=== PATIENT | male | born 1945 | race Two or more races ===

== ENCOUNTER 2019-10-20 19:20 | Inpatient (IN) | payer MEDICARE, OTHER ==
[~2019-10-20] VITALS: Ht 170.2 cm; Wt 85.8 kg
--- NOTE | 2019-10-20 19:50 | NUR ---
ED Nurse Note: . pt presents to ED via [facility] for concerns of sepsis. per EMS, nursing staff at the facility were concerned about sepsis for an unknown reason. pt is only citizen of [place] speaking and denies any pain, when asked how he is doing he says "good." pt is AOx4, answers questions and follows commands. oral temp is 100.8
[2019-10-20 19:53] VITALS: BP 137/59
[2019-10-20] MEDS ORDERED: TYLENOL EXTRA500 MG ORAL (19:55)
[2019-10-20] MEDS ORDERED: PROSCAR5 MG ORAL (19:55)
[2019-10-20] MEDS ORDERED: ARTIFICIAL TEAR15 ML BOTH EYES (19:55)
[2019-10-20] MEDS ORDERED: CARDIZEM60 MG ORAL (19:55)
[2019-10-20] MEDS ORDERED: FLOMAX0.4 MG ORAL (19:55)
[2019-10-20] MEDS ORDERED: ASPIR 8181 MG ORAL (19:55)
[2019-10-20] MEDS ORDERED: ATORVASTATIN CA20 MG ORAL (19:55)
[2019-10-20] MEDS ORDERED: VITAMIN A AND113 GM TP (19:55)
[2019-10-20] MEDS ORDERED: METFORMIN HCL500 M1 ORAL (19:55)
[2019-10-20] MEDS ORDERED: DOCUSATE SODIU100 MG ORAL (19:55)
[2019-10-20] MEDS ORDERED: SERTRALINE HCL50 MG ORAL (19:55)
[2019-10-20 19:58] LABS: HEMATOCRIT 36.6 % (42.0-52.0); HEMOGLOBIN 11.8 G/DL (14.2-18.0); MEAN CORPUSCULAR VOLUME 96 FL (80-99); PLATELET COUNT 283 K/UL (150-450); RED BLOOD COUNT 3.81 M/UL (4.70-6.10); RED CELL DISTRIBUTION WIDTH 13.3 % (11.6-14.8); WHITE BLOOD COUNT 13.5 K/UL (4.8-10.8)
--- NOTE | 2019-10-20 20:10 | NUR ---
ED Nurse Note: pt arrived with cloud catheter from [facility]. tubing is intact and patent. URine sample collected from cloud
[2019-10-20 20:37] LABS: BASOPHILS % (AUTO) 0.5 % (0.0-2.0); EOSINOPHILS % (AUTO) 0.6 % (0.0-3.0); MONOCYTES % (AUTO) 3.5 % (1.0-10.0); NEUTROPHILS % (AUTO) 88.4 % (45.0-75.0)
--- NOTE | 2019-10-20 20:37 | NUR ---
ED Nurse Note: received verbal order from ERMD to hang 1 L NS wide open
[2019-10-20 20:51] LABS: APPEARANCE,URINE SLIGHTLY CLOUDY; BILIRUBIN, URINE NEGATIVE (NEGATIVE); COLOR,URINE PALE YELLOW; GLUCOSE, URINE (UA) NEGATIVE (NEGATIVE); KETONES,URINE NEGATIVE (NEGATIVE); LEUKOCYTE ESTERASE ,URINE 3+ (NEGATIVE); NITRITE,URINE NEGATIVE (NEGATIVE); PH,URINE 5 (4.5-8.0); PROTEIN,URINE 2+ (NEGATIVE); UROBILINOGEN,URINE NORMAL MG/DL (0.0-1.0)
[2019-10-20 21:00] LABS: ANION GAP 8 mmol/L (5-15); BLOOD UREA NITROGEN 17 mg/dL (7-18); CALCIUM 9.3 MG/DL (8.5-10.1); CARBON DIOXIDE 29 MMOL/L (21-32); CHLORIDE 100 MMOL/L (98-107); CREATININE 1.4 MG/DL (0.55-1.30); POTASSIUM 4.1 MMOL/L (3.5-5.1); SODIUM 137 MMOL/L (136-145)
--- NOTE | 2019-10-20 21:09 | Emergency Room Report ---
History of Present Illness General Chief Complaint: General Complaint Source: Medical Record, EMS Present Illness HPI Disclaimer: Please note that this report is being documented using TVTYON technology. This can lead to erroneous entry secondary to incorrect interpretation by the dictating instrument. HPI: 74-year-old male with a history of hypertension, hyperlipidemia, diabetes presents for evaluation of possible infection. According to EMS, he was sent from his nursing facility over concerned over shaking chills he was experiencing earlier today. They do not provide any further information. The patient does not know why he was transferred. He states that he felt nauseous and had one episode of emesis yesterday but is eating and drinking at his baseline today. He had some loose stools earlier today but these also states that these have cleared up. He denies dysuria hematuria or back pain. He denies any subjective fevers, sweats but does report chills. He denies chest pain, palpitations shortness of breath or cough. PMH: Hypertension, hyperlipidemia, diabetes PSH: Back surgery unspecified Allergies: Denies Social Hx: Denies Allergies: Coded Allergies: No Known Allergies (Unverified , 10/20/19) Nursing Documentation-PMH Hx Cardiac Problems: Yes - A-fib Hx Hypertension: Yes Hx Diabetes: Yes - kidney failure Hx Cancer: Yes - BPH,UROGENITAL IMPLANT Hx Gastrointestinal Problems: Yes - Cholelithiasis Hx Neurological Problems: Yes - ENCEPHALOPATHY,SEPSIS,Depression Review of Systems All Other Systems: negative except mentioned in HPI Physical Exam Vital Signs Date Time Temp Pulse Resp B/P (MAP) Pulse Ox O2 Delivery O2 Flow Rate FiO2 10/20/19 19:17 99.0 120 20 180/80 (113) 99 Room Air General: Awake and alert, no acute distress HEENT: NC/AT. EOMI. Cardiovascular: Tachycardic, rate 110. S1 and S2 normal. No murmur appreciated Resp: Normal work of breathing. No cough, wheezing or crackles appreciated Abdomen: Abdomen is soft, nondistended. Nontender Skin: Intact. No abrasions, laceration or rash over the exposed skin MSK: Normal tone and bulk. Moving all extremities. No obvious deformity. Neuro: Awake and alert. Mentating appropriately. Back/Spine: No CVA/flank tenderness Medical Decision Making Diagnostic Impression: Primary Impression: UTI (urinary tract infection) ER Course This a 74-year-old male presenting for evaluation of possible infection as he had one episode of emesis yesterday, loose stools today and had shaking chills according to EMS. There is no accompanying paperwork to explain his transfer. He arrives slightly tachycardic though afebrile. He has no complaints and his physical exam is reassuring. We will start a broad metabolic infectious work- up. Will give gentle IV hydration given his tachycardia. May be dehydration secondary to volume losses from emesis yesterday and loose stools today. He states his symptoms are resolved now. Laboratory Tests Test 10/20/19 19:40 10/20/19 20:10 10/20/19 21:33 White Blood Count 13.5 K/UL (4.8-10.8) H Red Blood Count 3.81 M/UL (4.70-6.10) L Hemoglobin 11.8 G/DL (14.2-18.0) L Hematocrit 36.6 % (42.0-52.0) L Mean Corpuscular Volume 96 FL (80-99) Mean Corpuscular Hemoglobin 31.0 PG (27.0-31.0) Mean Corpuscular Hemoglobin Concent 32.3 G/DL (32.0-36.0) Red Cell Distribution Width 13.3 % (11.6-14.8) Platelet Count 283 K/UL (150-450) Mean Platelet Volume 7.0 FL (6.5-10.1) Neutrophils (%) (Auto) 88.4 % (45.0-75.0) H Lymphocytes (%) (Auto) 7.0 % (20.0-45.0) L Monocytes (%) (Auto) 3.5 % (1.0-10.0) Eosinophils (%) (Auto) 0.6 % (0.0-3.0) Basophils (%) (Auto) 0.5 % (0.0-2.0) Sodium Level 137 MMOL/L (136-145) Potassium Level 4.1 MMOL/L (3.5-5.1) Chloride Level 100 MMOL/L (98-107) Carbon Dioxide Level 29 MMOL/L (21-32) Anion Gap 8 mmol/L (5-15) Blood Urea Nitrogen 17 mg/dL (7-18) Creatinine 1.4 MG/DL (0.55-1.30) H Estimate Glomerular Filtration Rate mL/min (>60) Glucose Level 205 MG/DL (74-106) H Lactic Acid Level 2.50 mmol/L (0.4-2.0) H 1.10 mmol/L (0.66-2.22) Calcium Level 9.3 MG/DL (8.5-10.1) Total Bilirubin 0.8 MG/DL (0.2-1.0) Aspartate Amino Transferase (AST) 46 U/L (15-37) H Alanine Aminotransferase (ALT) 83 U/L (12-78) H Alkaline Phosphatase 191 U/L (46-116) H Total Creatine Kinase 168 U/L (26-308) Creatine Kinase MB 5.0 NG/ML (0.0-3.6) H Creatine Kinase MB Relative Index 2.9 Troponin I 0.000 ng/mL (0.000-0.056) Total Protein 7.7 G/DL (6.4-8.2) Albumin 2.8 G/DL (3.4-5.0) L Globulin 4.9 g/dL Albumin/Globulin Ratio 0.6 (1.0-2.7) L Urine Color Pale yellow Urine Appearance Slightly cloudy Urine pH 5 (4.5-8.0) Urine Specific [place] 1.010 (1.005-1.035) Urine Protein 2+ (NEGATIVE) H Urine Glucose (UA) Negative (NEGATIVE) Urine Ketones Negative (NEGATIVE) Urine Blood 3+ (NEGATIVE) H Urine Nitrite Negative (NEGATIVE) Urine Bilirubin Negative (NEGATIVE) Urine Urobilinogen Normal MG/DL (0.0-1.0) Urine Leukocyte Esterase 3+ (NEGATIVE) H Urine RBC 2-4 /HPF (0 - 0) H Urine WBC 20-30 /HPF (0 - 0) H Urine Squamous Epithelial Cells Occasional /LPF Urine Bacteria Moderate /HPF (NONE) H EKG Diagnostic Results EKG Time: 19:52 Rate: tachycardiac Rhythm: NSR ST Segments: no acute changes Other Impression Sinus tachycardia, borderline left axis, no ST segment changes. Rhythm Strip Diag. Results Rhythm Strip Time: 19:52 EP Interpretation: yes Rate: 110 Rhythm: NSR, no PVC's, no ectopy Chest X-Ray Diagnostic Results Chest X-Ray Diagnostic Results : Chest X-Ray Ordered: Yes # of Views/Limited/Complete: 1 View Indication: Other - infection Interpretation: no consolidation, no effusion, no pneumothorax, other - Hardware in the spine appears intact Impression: No acute disease Electronically Signed by: Electronically signed by Dr. Lucho Collado Reevaluation Time: 21:22 Last Vital Signs Date Time Temp Pulse Resp B/P (MAP) Pulse Ox O2 Delivery O2 Flow Rate FiO2 10/20/19 20:00 118 18 Room Air 10/20/19 19:53 100.8 137/59 96 Status: improved Reevaluation Impression Heart rate improving with IV fluids. Labs show elevation in white count with neutrophil predominance and urinalysis consistent with acute urinary tract infection. He has no clinical signs of pyelonephritis aside from the shaking chills noted earlier today. He is afebrile and otherwise well-appearing without flank tenderness. He is given ceftriaxone. Remainder of labs are largely within normal limits aside from slight elevation of his creatinine of 1.4 but with a normal BUN. Lactate is slightly elevated; repeat is pending. Given his tachycardia, the elevated lactate, his recent vomiting and diarrhea and the creatinine in the setting of an acute urinary tract infection the patient will be admitted for IV fluids and antibiotics. His chills have resolved and currently he is feeling well. Will admit to panel physician. Patient agrees with this treatment plan. Disposition: ADMITTED INPATIENT Condition: Stable Scripts Cephalexin* (KEFLEX*) 500 Mg Capsule 500 MG ORAL EVERY 12 HOURS, #14 CAP 0 Refills Prov: Lucho Collado MD 10/20/19 Referrals: NON PHYSICIAN (PCP) Lucho Collado MD Oct 20, 2019 21:09
[2019-10-20] MEDS ORDERED: cefTRIAXone 1 GM in NS 55 ML IVPB ONE (21:15)
[2019-10-20 21:17] LABS: ALANINE AMINOTRANSFERASE 83 U/L (12-78); ALBUMIN 2.8 G/DL (3.4-5.0); ALBUMIN/GLOBULIN RATIO 0.6 (1.0-2.7); ALKALINE PHOSPHATASE 191 U/L (46-116); ASPARTATE AMINO TRANSFERASE 46 U/L (15-37); BILIRUBIN,TOTAL 0.8 MG/DL (0.2-1.0); CREATINE KINASE 168 U/L (26-308)
[2019-10-20] MEDS ORDERED: CEPHALEXIN500 MG ORAL ×2 (21:25)
--- NOTE | 2019-10-20 22:15 | NUR ---
ED Nurse Note: report given to ITALIA Ray
[2019-10-20] MEDS ORDERED: Morphine Sulfate 2mg/ml Inj(IV/IM USE ONLY) IVP PRN (23:00)
[2019-10-20] MEDS ORDERED: Morphine Sulfate 4mg/ml Inj (IV USE ONLY) IVP PRN (23:00)
--- NOTE | 2019-10-20 23:00 | Pulmonology Progress Note ---
Assessment/Plan Assessment/Plan Pulmonary Consultation HPI: Patient is a 74 year old man from a Group Home, has Past Medical History of Hypertension, Hyperlipidemia, Diabetes admitted with Urinary Tract Infection. Noted to have chills as well as nausea and vomiting. Had one episode of loose stool. Denies dysuria hematuria or back pain. He denies any subjective fevers, sweats. No chest pain, palpitations shortness of breath or cough. PMH: Hypertension, Atrial Fibrillation, Hyperlipidemia, Diabetes, Chronic Kidney Disease, Depression, BPH, Cholelithiasis, Depression PSH: Back surgery unspecified, Urogenital implant Allergies: [place] Allergies Social Hx: Denies Allergies: No Known Allergies All Other Systems: negative except mentioned in HPI Physical Exam Vital Signs Noted Date Time Temp Pulse Resp B/P (MAP) Pulse Ox O2 Delivery O2 Flow Rate FiO2 10/20/19 19:17 99.0 120 20 180/80 (113) 99 Room Air General: Awake and alert, no acute distress HEENT: NC/AT. EOMI. Cardiovascular: Tachycardic, rate 110. HS1 and HS2 normal. No murmur appreciated Resp: Normal work of breathing. No cough, wheezing or crackles appreciated Abdomen: Abdomen is soft, nondistended. Nontender Skin: Intact. No abrasions, laceration or rash over the exposed skin MSK: Normal tone and bulk. Moving all extremities. No obvious deformity. Neuro: Awake and alert. Mentating appropriately. 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 O2 PRN PPX Monitor labs ISS Laboratory Tests Test 10/20/19 19:40 10/20/19 20:10 10/20/19 21:33 White Blood Count 13.5 K/UL (4.8-10.8) H Red Blood Count 3.81 M/UL (4.70-6.10) L Hemoglobin 11.8 G/DL (14.2-18.0) L Hematocrit 36.6 % (42.0-52.0) L Mean Corpuscular Volume 96 FL (80-99) Mean Corpuscular Hemoglobin 31.0 PG (27.0-31.0) Mean Corpuscular Hemoglobin Concent 32.3 G/DL (32.0-36.0) Red Cell Distribution Width 13.3 % (11.6-14.8) Platelet Count 283 K/UL (150-450) Mean Platelet Volume 7.0 FL (6.5-10.1) Neutrophils (%) (Auto) 88.4 % (45.0-75.0) H Lymphocytes (%) (Auto) 7.0 % (20.0-45.0) L Monocytes (%) (Auto) 3.5 % (1.0-10.0) Eosinophils (%) (Auto) 0.6 % (0.0-3.0) Basophils (%) (Auto) 0.5 % (0.0-2.0) Sodium Level 137 MMOL/L (136-145) Potassium Level 4.1 MMOL/L (3.5-5.1) Chloride Level 100 MMOL/L (98-107) Carbon Dioxide Level 29 MMOL/L (21-32) Anion Gap 8 mmol/L (5-15) Blood Urea Nitrogen 17 mg/dL (7-18) Creatinine 1.4 MG/DL (0.55-1.30) H Estimate Glomerular Filtration Rate mL/min (>60) Glucose Level 205 MG/DL (74-106) H Lactic Acid Level 2.50 mmol/L (0.4-2.0) H 1.10 mmol/L (0.66-2.22) Calcium Level 9.3 MG/DL (8.5-10.1) Total Bilirubin 0.8 MG/DL (0.2-1.0) Aspartate Amino Transferase (AST) 46 U/L (15-37) H Alanine Aminotransferase (ALT) 83 U/L (12-78) H Alkaline Phosphatase 191 U/L (46-116) H Total Creatine Kinase 168 U/L (26-308) Creatine Kinase MB 5.0 NG/ML (0.0-3.6) H Creatine Kinase MB Relative Index 2.9 Troponin I 0.000 ng/mL (0.000-0.056) Total Protein 7.7 G/DL (6.4-8.2) Albumin 2.8 G/DL (3.4-5.0) L Globulin 4.9 g/dL Albumin/Globulin Ratio 0.6 (1.0-2.7) L Urine Color Pale yellow Urine Appearance Slightly cloudy Urine pH 5 (4.5-8.0) Urine Specific [place] 1.010 (1.005-1.035) Urine Protein 2+ (NEGATIVE) H Urine Glucose (UA) Negative (NEGATIVE) Urine Ketones Negative (NEGATIVE) Urine Blood 3+ (NEGATIVE) H Urine Nitrite Negative (NEGATIVE) Urine Bilirubin Negative (NEGATIVE) Urine Urobilinogen Normal MG/DL (0.0-1.0) Urine Leukocyte Esterase 3+ (NEGATIVE) H Urine RBC 2-4 /HPF (0 - 0) H Urine WBC 20-30 /HPF (0 - 0) H Urine Squamous Epithelial Cells Occasional /LPF Urine Bacteria Moderate /HPF (NONE) H EKG: Sinus tachycardia, borderline left axis, no ST segment changes. Chest X-Ray: no consolidation, no effusion, no pneumothorax, other - Hardware in the spine appears intact Subjective ROS Limited/Unobtainable: No Allergies: Coded Allergies: No Known Allergies (Unverified , 10/20/19) Objective Last 24 Hour Vital Signs Date Time Temp Pulse Resp B/P (MAP) Pulse Ox O2 Delivery O2 Flow Rate FiO2 10/20/19 20:00 118 18 Room Air 10/20/19 19:53 100.8 118 18 137/59 96 Room Air 10/20/19 19:17 99.0 120 20 180/80 (113) 99 Room Air Microbiology Date/Time Source Procedure Growth Status 10/20/19 22:00 Rectum Received Laboratory Tests 10/20/19 19:40: White Blood Count 13.5H, Red Blood Count 3.81L, Hemoglobin 11.8L, Hematocrit 36.6L, Mean Corpuscular Volume 96, Mean Corpuscular Hemoglobin 31.0, Mean Corpuscular Hemoglobin Concent 32.3, Red Cell Distribution Width 13.3, Platelet Count 283, Mean Platelet Volume 7.0, Neutrophils (%) (Auto) 88.4H, Lymphocytes ( %) (Auto) 7.0L, Monocytes (%) (Auto) 3.5, Eosinophils (%) (Auto) 0.6, Basophils (%) (Auto) 0.5, Sodium Level 137, Potassium Level 4.1, Chloride Level 100, Carbon Dioxide Level 29, Anion Gap 8, Blood Urea Nitrogen 17, Creatinine 1.4H, Estimat Glomerular Filtration Rate , Glucose Level 205H, Lactic Acid Level 2.50H , Calcium Level 9.3, Total Bilirubin 0.8, Aspartate Amino Transf (AST/SGOT) 46H , Alanine Aminotransferase (ALT/SGPT) 83H, Alkaline Phosphatase 191H, Total Creatine Kinase 168, Creatine Kinase MB 5.0H, Creatine Kinase MB Relative Index 2.9, Troponin I 0.000, Total Protein 7.7, Albumin 2.8L, Globulin 4.9, Albumin/ Globulin Ratio 0.6L 10/20/19 20:10: Urine Color Pale yellow, Urine Appearance Slightly cloudy, Urine pH 5, Urine Specific [place] 1.010, Urine Protein 2+H, Urine Glucose (UA) Negative, Urine Ketones Negative, Urine Blood 3+H, Urine Nitrite Negative, Urine Bilirubin Negative, Urine Urobilinogen Normal, Urine Leukocyte Esterase 3+H, Urine RBC 2- 4H, Urine WBC 20-30H, Urine Squamous Epithelial Cells Occasional, Urine Bacteria ModerateH 10/20/19 21:33: Lactic Acid Level 1.10 Mega Rucker MD Oct 20, 2019 23:00
--- NOTE | 2019-10-20 23:05 | NUR ---
NURSE NOTES: Received report from ITALIA Walker ED. Pt arrived the unit @ 2220 via gurney. AAO x 4, on room air. [place] speaking. IV intact and patent. Pt admitted with [facility] from [facility]. All belongings reviewed and meds recon done. Denied any pain or acute distress. Scars on R, L tibia noted and no pressure ulcer. Orientation to the room and facility given. Fall precaution maintained. Vitals 102HR, 125/62BP, 99.3F, 92% O2. Bed locked, lowest position, side rails up, alarm on, call light within reach. Will continue to monitor.
--- NOTE | 2019-10-20 23:30 | NUR ---
NURSE NOTES: Dr. Rucker visited pt and said ok to keep Helms.
--- NOTE | 2019-10-20 23:30 | NUR ---
NURSE NOTES: Received admission orders from Dr. Rucker. Order noted and carried out.
[2019-10-21] VITALS: BP 125/73
[2019-10-21 04:00] VITALS: BP 128/69
[2019-10-21] MEDS: NovoLOG Insulin Flexpen SUBQ SCH ×4 (05:34→20:27)
--- NOTE | 2019-10-21 06:24 | NUR ---
NURSE NOTES: Made aware Dr. Hilario that pt has tachycardia. Received orders and carried out.
--- NOTE | 2019-10-21 07:12 | NUR ---
HAND-OFF: Report given to ITALIA Vazquez.
--- NOTE | 2019-10-21 07:28 | NUR ---
NURSE NOTES: Received pt in bed, AAO x 4. [place] speaking. RA. No c/o of pain/distress. IV on LAC 18g noted. Side rails x 2. Bed in the lowest and locked. Call light within reach. Will continue to monitor
[2019-10-21 08:00] VITALS: BP 130/70
[2019-10-21] MEDS: Sertraline 50mg tab ORAL SCH (08:30)
[2019-10-21] MEDS: Tamsulosin 0.4mg cap ORAL SCH (08:30)
[2019-10-21] MEDS: Aspirin EC 81mg tab ORAL SCH (08:30)
[2019-10-21] MEDS: Docusate 100mg cap ORAL SCH ×2 (08:30→17:01)
[2019-10-21] MEDS: dilTIAZem HCl 60mg tab ORAL SCH ×2 (08:31→20:21)
[2019-10-21] MEDS: Heparin 5000 units/ml inj SUBQ SCH ×2 (08:32→20:26)
--- NOTE | 2019-10-21 08:36 | Pulmonology Progress Note ---
Assessment/Plan Assessment/Plan Pulmonary Progress Note HPI: Patient is a 74 year old man from a [facility], has Past Medical History of Hypertension, Hyperlipidemia, Diabetes admitted with Urinary Tract Infection. Noted to have chills as well as nausea and vomiting. Had one episode of loose stool. Denies dysuria hematuria or back pain. He denies any subjective fevers, sweats. No chest pain, palpitations shortness of breath or cough. No new complaints PMH: Hypertension, Atrial Fibrillation, Hyperlipidemia, Diabetes, Chronic Kidney Disease, Depression, BPH, Cholelithiasis, Depression PSH: Back surgery unspecified, Urogenital implant Allergies: No Known Allergies Physical Exam Vital Signs Noted General: Awake and alert, no acute distress HEENT: NC/AT. EOMI. Cardiovascular: Tachycardic, rate 110. HS1 and HS2 normal. No murmur appreciated Resp: Normal work of breathing. No cough, wheezing or crackles appreciated Abdomen: Abdomen is soft, nondistended. Nontender Skin: Intact. No abrasions, laceration or rash over the exposed skin MSK: Normal tone and bulk. Moving all extremities. No obvious deformity. Neuro: Awake and alert. Mentating appropriately. 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 Monitor labs ISS Laboratory Tests Test 10/20/19 19:40 10/20/19 20:10 10/20/19 21:33 White Blood Count 13.5 K/UL (4.8-10.8) H Red Blood Count 3.81 M/UL (4.70-6.10) L Hemoglobin 11.8 G/DL (14.2-18.0) L Hematocrit 36.6 % (42.0-52.0) L Mean Corpuscular Volume 96 FL (80-99) Mean Corpuscular Hemoglobin 31.0 PG (27.0-31.0) Mean Corpuscular Hemoglobin Concent 32.3 G/DL (32.0-36.0) Red Cell Distribution Width 13.3 % (11.6-14.8) Platelet Count 283 K/UL (150-450) Mean Platelet Volume 7.0 FL (6.5-10.1) Neutrophils (%) (Auto) 88.4 % (45.0-75.0) H Lymphocytes (%) (Auto) 7.0 % (20.0-45.0) L Monocytes (%) (Auto) 3.5 % (1.0-10.0) Eosinophils (%) (Auto) 0.6 % (0.0-3.0) Basophils (%) (Auto) 0.5 % (0.0-2.0) Sodium Level 137 MMOL/L (136-145) Potassium Level 4.1 MMOL/L (3.5-5.1) Chloride Level 100 MMOL/L (98-107) Carbon Dioxide Level 29 MMOL/L (21-32) Anion Gap 8 mmol/L (5-15) Blood Urea Nitrogen 17 mg/dL (7-18) Creatinine 1.4 MG/DL (0.55-1.30) H Estimate Glomerular Filtration Rate mL/min (>60) Glucose Level 205 MG/DL (74-106) H Lactic Acid Level 2.50 mmol/L (0.4-2.0) H 1.10 mmol/L (0.66-2.22) Calcium Level 9.3 MG/DL (8.5-10.1) Total Bilirubin 0.8 MG/DL (0.2-1.0) Aspartate Amino Transferase (AST) 46 U/L (15-37) H Alanine Aminotransferase (ALT) 83 U/L (12-78) H Alkaline Phosphatase 191 U/L (46-116) H Total Creatine Kinase 168 U/L (26-308) Creatine Kinase MB 5.0 NG/ML (0.0-3.6) H Creatine Kinase MB Relative Index 2.9 Troponin I 0.000 ng/mL (0.000-0.056) Total Protein 7.7 G/DL (6.4-8.2) Albumin 2.8 G/DL (3.4-5.0) L Globulin 4.9 g/dL Albumin/Globulin Ratio 0.6 (1.0-2.7) L Urine Color Pale yellow Urine Appearance Slightly cloudy Urine pH 5 (4.5-8.0) Urine Specific [place] 1.010 (1.005-1.035) Urine Protein 2+ (NEGATIVE) H Urine Glucose (UA) Negative (NEGATIVE) Urine Ketones Negative (NEGATIVE) Urine Blood 3+ (NEGATIVE) H Urine Nitrite Negative (NEGATIVE) Urine Bilirubin Negative (NEGATIVE) Urine Urobilinogen Normal MG/DL (0.0-1.0) Urine Leukocyte Esterase 3+ (NEGATIVE) H Urine RBC 2-4 /HPF (0 - 0) H Urine WBC 20-30 /HPF (0 - 0) H Urine Squamous Epithelial Cells Occasional /LPF Urine Bacteria Moderate /HPF (NONE) H EKG: Sinus tachycardia, borderline left axis, no ST segment changes. Chest X-Ray: no consolidation, no effusion, no pneumothorax, other - Hardware in the spine appears intact Seen earlier Subjective ROS Limited/Unobtainable: No Allergies: Coded Allergies: No Known Allergies (Unverified , 10/20/19) Objective Last 24 Hour Vital Signs Date Time Temp Pulse Resp B/P (MAP) Pulse Ox O2 Delivery O2 Flow Rate FiO2 10/21/19 08:31 110 130/70 10/21/19 08:00 97.8 110 17 130/70 (90) 99 10/21/19 04:37 99.2 10/21/19 04:00 100.9 121 20 128/69 (88) 92 10/21/19 00:40 Room Air 10/21/19 00:00 98.4 103 20 125/73 (90) 95 10/20/19 22:15 100.8 99 18 137/59 96 Room Air 10/20/19 20:00 118 18 Room Air 10/20/19 19:53 100.8 118 18 137/59 96 Room Air 10/20/19 19:17 99.0 120 20 180/80 (113) 99 Room Air Intake and Output 10/20/19 10/21/19 19:00 07:00 Intake Total 0 ml Output Total 2100 ml Balance -2100 ml Intake Oral 0 ml Output Urine Total 2100 ml Microbiology Date/Time Source Procedure Growth Status 10/20/19 22:00 Rectum Received Laboratory Tests 10/20/19 19:40: White Blood Count 13.5H, Red Blood Count 3.81L, Hemoglobin 11.8L, Hematocrit 36.6L, Mean Corpuscular Volume 96, Mean Corpuscular Hemoglobin 31.0, Mean Corpuscular Hemoglobin Concent 32.3, Red Cell Distribution Width 13.3, Platelet Count 283, Mean Platelet Volume 7.0, Neutrophils (%) (Auto) 88.4H, Lymphocytes ( %) (Auto) 7.0L, Monocytes (%) (Auto) 3.5, Eosinophils (%) (Auto) 0.6, Basophils (%) (Auto) 0.5, Sodium Level 137, Potassium Level 4.1, Chloride Level 100, Carbon Dioxide Level 29, Anion Gap 8, Blood Urea Nitrogen 17, Creatinine 1.4H, Estimat Glomerular Filtration Rate , Glucose Level 205H, Lactic Acid Level 2.50H , Calcium Level 9.3, Total Bilirubin 0.8, Aspartate Amino Transf (AST/SGOT) 46H , Alanine Aminotransferase (ALT/SGPT) 83H, Alkaline Phosphatase 191H, Total Creatine Kinase 168, Creatine Kinase MB 5.0H, Creatine Kinase MB Relative Index 2.9, Troponin I 0.000, Total Protein 7.7, Albumin 2.8L, Globulin 4.9, Albumin/ Globulin Ratio 0.6L 10/20/19 20:10: Urine Color Pale yellow, Urine Appearance Slightly cloudy, Urine pH 5, Urine Specific [place] 1.010, Urine Protein 2+H, Urine Glucose (UA) Negative, Urine Ketones Negative, Urine Blood 3+H, Urine Nitrite Negative, Urine Bilirubin Negative, Urine Urobilinogen Normal, Urine Leukocyte Esterase 3+H, Urine RBC 2- 4H, Urine WBC 20-30H, Urine Squamous Epithelial Cells Occasional, Urine Bacteria ModerateH 10/20/19 21:33: Lactic Acid Level 1.10 10/21/19 07:40: Troponin I [Pending] Current Medications Medications (Trade) Dose Ordered Sig/Krzysztof Route PRN Reason Start Time Stop Time Status Last Admin Dose Admin Acetaminophen (Tylenol) 650 mg Q6H PRN ORAL Mild Pain/Temp > 100.5 10/20/19 23:45 11/19/19 23:44 10/21/19 04:07 Artificial Tears (Akwa-Tears) 2 drop Q6HR BOTH EYES 10/21/19 12:00 11/20/19 11:59 Aspirin (Ecotrin) 81 mg DAILY ORAL 10/21/19 09:00 11/20/19 08:59 10/21/19 08:30 Atorvastatin Calcium (Lipitor) 20 mg BEDTIME ORAL 10/21/19 21:00 11/20/19 20:59 Ceftriaxone Sodium 1 gm/ Dextrose 55 ml @ 110 mls/hr Q24H IVPB 10/21/19 21:00 10/28/19 20:59 Dextrose (Dextrose 50%) 25 ml Q30M PRN IV Hypoglycemia 10/20/19 23:15 11/19/19 23:14 Dextrose (Dextrose 50%) 50 ml Q30M PRN IV Hypoglycemia 10/20/19 23:15 11/19/19 23:14 Diltiazem HCl (Cardizem) 60 mg EVERY 12 HOURS ORAL 10/21/19 09:00 11/20/19 08:59 10/21/19 08:31 Docusate Sodium (Colace) 100 mg TWICE A DAY ORAL 10/21/19 09:00 11/20/19 08:59 10/21/19 08:30 Finasteride (Proscar) 5 mg DAILY ORAL 10/21/19 09:00 11/20/19 08:59 10/21/19 08:30 Heparin Sodium (Porcine) (Heparin 5000 units/ml) 5,000 units EVERY 12 HOURS SUBQ 10/21/19 09:00 11/20/19 08:59 10/21/19 08:32 Insulin Aspart (NovoLOG) BEFORE MEALS AND HS SUBQ 10/21/19 06:30 11/20/19 06:29 10/21/19 05:34 Metformin HCl (Glucophage) 500 mg TWICE A DAY ORAL 10/21/19 09:00 11/20/19 08:59 10/21/19 08:30 Ondansetron HCl (Zofran) 4 mg Q8HR PRN IVP Nausea & Vomiting 10/21/19 00:00 11/20/19 00:00 Sertraline HCl (Zoloft) 50 mg DAILY ORAL 10/21/19 09:00 11/20/19 08:59 10/21/19 08:30 Tamsulosin HCl (Flomax) 0.4 mg DAILY ORAL 10/21/19 09:00 11/20/19 08:59 10/21/19 08:30 Mega Rucker MD Oct 21, 2019 08:36
[2019-10-21] MEDS ORDERED: metFORMIN 500mg tab ORAL SCH (09:00)
--- NOTE | 2019-10-21 10:18 | History & Physical ---
History and Physical History & Physicial HP Dictation completed on 1010 hours Momo Hilario MD Oct 21, 2019 10:18
--- NOTE | 2019-10-21 10:19 | General Progress Note ---
Assessment/Plan Assessment/Plan: Full Dictatino in progress 1- Sepsis, 2- UTI 3- Abn LFT 4- DM Plan: DC Metformin New abx ordered Pending cultures US abd Subjective Allergies: Coded Allergies: No Known Allergies (Unverified , 10/20/19) Objective Last 24 Hour Vital Signs Date Time Temp Pulse Resp B/P (MAP) Pulse Ox O2 Delivery O2 Flow Rate FiO2 10/21/19 08:31 110 130/70 10/21/19 08:00 97.8 110 17 130/70 (90) 99 10/21/19 04:37 99.2 10/21/19 04:00 100.9 121 20 128/69 (88) 92 10/21/19 00:40 Room Air 10/21/19 00:00 98.4 103 20 125/73 (90) 95 10/20/19 22:15 100.8 99 18 137/59 96 Room Air 10/20/19 20:00 118 18 Room Air 10/20/19 19:53 100.8 118 18 137/59 96 Room Air 10/20/19 19:17 99.0 120 20 180/80 (113) 99 Room Air Intake and Output 10/20/19 10/21/19 19:00 07:00 Intake Total 0 ml Output Total 2100 ml Balance -2100 ml Intake Oral 0 ml Output Urine Total 2100 ml Laboratory Tests 10/20/19 19:40: White Blood Count 13.5H, Red Blood Count 3.81L, Hemoglobin 11.8L, Hematocrit 36.6L, Mean Corpuscular Volume 96, Mean Corpuscular Hemoglobin 31.0, Mean Corpuscular Hemoglobin Concent 32.3, Red Cell Distribution Width 13.3, Platelet Count 283, Mean Platelet Volume 7.0, Neutrophils (%) (Auto) 88.4H, Lymphocytes ( %) (Auto) 7.0L, Monocytes (%) (Auto) 3.5, Eosinophils (%) (Auto) 0.6, Basophils (%) (Auto) 0.5, Sodium Level 137, Potassium Level 4.1, Chloride Level 100, Carbon Dioxide Level 29, Anion Gap 8, Blood Urea Nitrogen 17, Creatinine 1.4H, Estimat Glomerular Filtration Rate , Glucose Level 205H, Lactic Acid Level 2.50H , Calcium Level 9.3, Total Bilirubin 0.8, Aspartate Amino Transf (AST/SGOT) 46H , Alanine Aminotransferase (ALT/SGPT) 83H, Alkaline Phosphatase 191H, Total Creatine Kinase 168, Creatine Kinase MB 5.0H, Creatine Kinase MB Relative Index 2.9, Troponin I 0.000, Total Protein 7.7, Albumin 2.8L, Globulin 4.9, Albumin/ Globulin Ratio 0.6L 10/20/19 20:10: Urine Color Pale yellow, Urine Appearance Slightly cloudy, Urine pH 5, Urine Specific [place] 1.010, Urine Protein 2+H, Urine Glucose (UA) Negative, Urine Ketones Negative, Urine Blood 3+H, Urine Nitrite Negative, Urine Bilirubin Negative, Urine Urobilinogen Normal, Urine Leukocyte Esterase 3+H, Urine RBC 2- 4H, Urine WBC 20-30H, Urine Squamous Epithelial Cells Occasional, Urine Bacteria ModerateH 10/20/19 21:33: Lactic Acid Level 1.10 10/21/19 07:40: Troponin I 0.000 Height (Feet): 5 Height (Inches): 7.00 Weight (Pounds): 150 Momo Hilario MD Oct 21, 2019 10:19
--- NOTE | 2019-10-21 11:41 | Cardiac Electrophysiology PN ---
Subjective Subjective [id number] Objective Last 24 Hour Vital Signs Date Time Temp Pulse Resp B/P (MAP) Pulse Ox O2 Delivery O2 Flow Rate FiO2 10/21/19 09:00 Room Air 10/21/19 08:31 110 130/70 10/21/19 08:00 97.8 110 17 130/70 (90) 99 10/21/19 04:37 99.2 10/21/19 04:00 100.9 121 20 128/69 (88) 92 10/21/19 00:40 Room Air 10/21/19 00:00 98.4 103 20 125/73 (90) 95 10/20/19 22:15 100.8 99 18 137/59 96 Room Air 10/20/19 20:00 118 18 Room Air 10/20/19 19:53 100.8 118 18 137/59 96 Room Air 10/20/19 19:17 99.0 120 20 180/80 (113) 99 Room Air Intake and Output 10/20/19 10/21/19 19:00 07:00 Intake Total 0 ml Output Total 2100 ml Balance -2100 ml Intake Oral 0 ml Output Urine Total 2100 ml Laboratory Tests Test 10/20/19 19:40 10/20/19 20:10 10/20/19 21:33 10/21/19 07:40 White Blood Count 13.5 K/UL (4.8-10.8) H Red Blood Count 3.81 M/UL (4.70-6.10) L Hemoglobin 11.8 G/DL (14.2-18.0) L Hematocrit 36.6 % (42.0-52.0) L Mean Corpuscular Volume 96 FL (80-99) Mean Corpuscular Hemoglobin 31.0 PG (27.0-31.0) Mean Corpuscular Hemoglobin Concent 32.3 G/DL (32.0-36.0) Red Cell Distribution Width 13.3 % (11.6-14.8) Platelet Count 283 K/UL (150-450) Mean Platelet Volume 7.0 FL (6.5-10.1) Neutrophils (%) (Auto) 88.4 % (45.0-75.0) H Lymphocytes (%) (Auto) 7.0 % (20.0-45.0) L Monocytes (%) (Auto) 3.5 % (1.0-10.0) Eosinophils (%) (Auto) 0.6 % (0.0-3.0) Basophils (%) (Auto) 0.5 % (0.0-2.0) Sodium Level 137 MMOL/L (136-145) Potassium Level 4.1 MMOL/L (3.5-5.1) Chloride Level 100 MMOL/L (98-107) Carbon Dioxide Level 29 MMOL/L (21-32) Anion Gap 8 mmol/L (5-15) Blood Urea Nitrogen 17 mg/dL (7-18) Creatinine 1.4 MG/DL (0.55-1.30) H Estimat Glomerular Filtration Rate mL/min (>60) Glucose Level 205 MG/DL (74-106) H Lactic Acid Level 2.50 mmol/L (0.4-2.0) H 1.10 mmol/L (0.66-2.22) Calcium Level 9.3 MG/DL (8.5-10.1) Total Bilirubin 0.8 MG/DL (0.2-1.0) Aspartate Amino Transf (AST/SGOT) 46 U/L (15-37) H Alanine Aminotransferase (ALT/SGPT) 83 U/L (12-78) H Alkaline Phosphatase 191 U/L (46-116) H Total Creatine Kinase 168 U/L (26-308) Creatine Kinase MB 5.0 NG/ML (0.0-3.6) H Creatine Kinase MB Relative Index 2.9 Troponin I 0.000 ng/mL (0.000-0.056) 0.000 ng/mL (0.000-0.056) Total Protein 7.7 G/DL (6.4-8.2) Albumin 2.8 G/DL (3.4-5.0) L Globulin 4.9 g/dL Albumin/Globulin Ratio 0.6 (1.0-2.7) L Urine Color Pale yellow Urine Appearance Slightly cloudy Urine pH 5 (4.5-8.0) Urine Specific [place] 1.010 (1.005-1.035) Urine Protein 2+ (NEGATIVE) H Urine Glucose (UA) Negative (NEGATIVE) Urine Ketones Negative (NEGATIVE) Urine Blood 3+ (NEGATIVE) H Urine Nitrite Negative (NEGATIVE) Urine Bilirubin Negative (NEGATIVE) Urine Urobilinogen Normal MG/DL (0.0-1.0) Urine Leukocyte Esterase 3+ (NEGATIVE) H Urine RBC 2-4 /HPF (0 - 0) H Urine WBC 20-30 /HPF (0 - 0) H Urine Squamous Epithelial Cells Occasional /LPF Urine Bacteria Moderate /HPF (NONE) H Hepatitis A IgM Antibody Pending Hepatitis B Surface Antigen Pending Hepatitis B Core IgM Antibody Pending Hepatitis C Antibody Pending Microbiology Date/Time Source Procedure Growth Status 10/20/19 20:10 Urine,Clean Catch Urine Culture - Preliminary Resulted 10/20/19 22:00 Rectum Received Rogelio Peña MD Oct 21, 2019 11:41
[2019-10-21 12:00] VITALS: BP 136/82
--- NOTE | 2019-10-21 12:16 | Diagnostic Imaging Report ---
Indication: Urinary retention. Technique: Grayscale and duplex Doppler imaging of the kidneys performed. Comparison: None Findings: The size, contour, and echogenicity of both kidneys are within normal limits. There is no hydronephrosis.. The right kidney measures 11.8 cm. in length. The left kidney measures 12.2 cm. in length. The IVC is patent. Urinary bladder is nondistended. Helms catheter noted in good position. The prostate is enlarged with a volume of 61 cc (4.6 x 5 x 5.1 cm) IMPRESSION: Prostate hypertrophy. Helms catheter in good position
[2019-10-21] MEDS: Meropenem 1 GM in NS 55 ML IVPB SCH ×2 (12:19→23:29)
--- NOTE | 2019-10-21 12:36 | NUR ---
CASE MANAGEMENT:INITIAL REVIEW 74 YR OLD MALE BIBA ON 10/20/2019 FROM [facility] CC;GENERAL COMPLAINT SI;UTI 100.8 120 20 180/80 96% ON RA WBC 13.5 CREAT 1.4 AST 46 ALT 83 UA+ PROTEIN, BLOOD, LEUKOCYTE, RBC, WBC, BACTERIA RENAL US - Prostate hypertrophy. Helms catheter in good position IS;IVF BOLUS ROCEPHIN IV ADMITTED TO MED SURG MED SURG STATUS DCP;FROM [facility]
[2019-10-21] MEDS ORDERED: Vancomycin 1gm/D5W 275ml IVPB SCH ×2 (13:00)
--- NOTE | 2019-10-21 13:46 | Infectious Diseases Prog Note ---
Assessment/Plan Problems: (1) Gram negative sepsis Assessment & Plan: source could be CAUTI , continue meropenem pending identification and sensitivity (2) Catheter-associated urinary tract infection Assessment & Plan: already on meropenem pending urine culture, may need to change cloud catheter (3) Nausea & vomiting Assessment & Plan: due to the above, continue supportive care (4) Elev transaminase/LDH Assessment & Plan: suspect due to liver shock from sepsis, continue supportive care , trends liver function, screen for hepatitis Subjective Allergies: Coded Allergies: No Known Allergies (Unverified , 10/20/19) Objective Vital Signs Last 24 Hour Vital Signs Date Time Temp Pulse Resp B/P (MAP) Pulse Ox O2 Delivery O2 Flow Rate FiO2 10/21/19 12:00 97.9 112 18 136/82 (100) 100 10/21/19 09:00 Room Air 10/21/19 08:31 110 130/70 10/21/19 08:00 97.8 110 17 130/70 (90) 99 10/21/19 04:37 99.2 10/21/19 04:00 100.9 121 20 128/69 (88) 92 10/21/19 00:40 Room Air 10/21/19 00:00 98.4 103 20 125/73 (90) 95 10/20/19 22:15 100.8 99 18 137/59 96 Room Air 10/20/19 20:00 118 18 Room Air 10/20/19 19:53 100.8 118 18 137/59 96 Room Air 10/20/19 19:17 99.0 120 20 180/80 (113) 99 Room Air Height (Feet): 5 Height (Inches): 7.00 Weight (Pounds): 150 Microbiology Date/Time Source Procedure Growth Status 10/20/19 19:45 Blood Blood Culture - Preliminary Resulted 10/20/19 19:40 Blood Blood Culture - Preliminary Resulted 10/20/19 20:10 Urine,Clean Catch Urine Culture - Preliminary Resulted 10/20/19 22:00 Rectum Received Laboratory Tests Test 10/20/19 19:40 10/20/19 20:10 10/20/19 21:33 10/21/19 07:40 White Blood Count 13.5 K/UL (4.8-10.8) H Red Blood Count 3.81 M/UL (4.70-6.10) L Hemoglobin 11.8 G/DL (14.2-18.0) L Hematocrit 36.6 % (42.0-52.0) L Mean Corpuscular Volume 96 FL (80-99) Mean Corpuscular Hemoglobin 31.0 PG (27.0-31.0) Mean Corpuscular Hemoglobin Concent 32.3 G/DL (32.0-36.0) Red Cell Distribution Width 13.3 % (11.6-14.8) Platelet Count 283 K/UL (150-450) Mean Platelet Volume 7.0 FL (6.5-10.1) Neutrophils (%) (Auto) 88.4 % (45.0-75.0) H Lymphocytes (%) (Auto) 7.0 % (20.0-45.0) L Monocytes (%) (Auto) 3.5 % (1.0-10.0) Eosinophils (%) (Auto) 0.6 % (0.0-3.0) Basophils (%) (Auto) 0.5 % (0.0-2.0) Sodium Level 137 MMOL/L (136-145) Potassium Level 4.1 MMOL/L (3.5-5.1) Chloride Level 100 MMOL/L (98-107) Carbon Dioxide Level 29 MMOL/L (21-32) Anion Gap 8 mmol/L (5-15) Blood Urea Nitrogen 17 mg/dL (7-18) Creatinine 1.4 MG/DL (0.55-1.30) H Estimat Glomerular Filtration Rate mL/min (>60) Glucose Level 205 MG/DL (74-106) H Lactic Acid Level 2.50 mmol/L (0.4-2.0) H 1.10 mmol/L (0.66-2.22) Calcium Level 9.3 MG/DL (8.5-10.1) Total Bilirubin 0.8 MG/DL (0.2-1.0) Aspartate Amino Transf (AST/SGOT) 46 U/L (15-37) H Alanine Aminotransferase (ALT/SGPT) 83 U/L (12-78) H Alkaline Phosphatase 191 U/L (46-116) H Total Creatine Kinase 168 U/L (26-308) Creatine Kinase MB 5.0 NG/ML (0.0-3.6) H Creatine Kinase MB Relative Index 2.9 Troponin I 0.000 ng/mL (0.000-0.056) 0.000 ng/mL (0.000-0.056) Total Protein 7.7 G/DL (6.4-8.2) Albumin 2.8 G/DL (3.4-5.0) L Globulin 4.9 g/dL Albumin/Globulin Ratio 0.6 (1.0-2.7) L Urine Color Pale yellow Urine Appearance Slightly cloudy Urine pH 5 (4.5-8.0) Urine Specific [place] 1.010 (1.005-1.035) Urine Protein 2+ (NEGATIVE) H Urine Glucose (UA) Negative (NEGATIVE) Urine Ketones Negative (NEGATIVE) Urine Blood 3+ (NEGATIVE) H Urine Nitrite Negative (NEGATIVE) Urine Bilirubin Negative (NEGATIVE) Urine Urobilinogen Normal MG/DL (0.0-1.0) Urine Leukocyte Esterase 3+ (NEGATIVE) H Urine RBC 2-4 /HPF (0 - 0) H Urine WBC 20-30 /HPF (0 - 0) H Urine Squamous Epithelial Cells Occasional /LPF Urine Bacteria Moderate /HPF (NONE) H Hepatitis A IgM Antibody Pending Hepatitis B Surface Antigen Pending Hepatitis B Core IgM Antibody Pending Hepatitis C Antibody Pending Current Medications Medications (Trade) Dose Ordered Sig/Krzysztof Route PRN Reason Start Time Stop Time Status Last Admin Dose Admin Acetaminophen (Tylenol) 650 mg Q6H PRN ORAL Mild Pain/Temp > 100.5 10/20/19 23:45 11/19/19 23:44 10/21/19 04:07 Artificial Tears (Akwa-Tears) 2 drop Q6HR BOTH EYES 10/21/19 12:00 11/20/19 11:59 10/21/19 12:19 Aspirin (Ecotrin) 81 mg DAILY ORAL 10/21/19 09:00 11/20/19 08:59 10/21/19 08:30 Atorvastatin Calcium (Lipitor) 20 mg BEDTIME ORAL 10/21/19 21:00 11/20/19 20:59 Dextrose (Dextrose 50%) 25 ml Q30M PRN IV Hypoglycemia 10/20/19 23:15 11/19/19 23:14 Dextrose (Dextrose 50%) 50 ml Q30M PRN IV Hypoglycemia 10/20/19 23:15 11/19/19 23:14 Diltiazem HCl (Cardizem) 60 mg EVERY 12 HOURS ORAL 10/21/19 09:00 11/20/19 08:59 10/21/19 08:31 Docusate Sodium (Colace) 100 mg TWICE A DAY ORAL 10/21/19 09:00 11/20/19 08:59 10/21/19 08:30 Finasteride (Proscar) 5 mg DAILY ORAL 10/21/19 09:00 11/20/19 08:59 10/21/19 08:30 Heparin Sodium (Porcine) (Heparin 5000 units/ml) 5,000 units EVERY 12 HOURS SUBQ 10/21/19 09:00 11/20/19 08:59 10/21/19 08:32 Insulin Aspart (NovoLOG) BEFORE MEALS AND HS SUBQ 10/21/19 06:30 11/20/19 06:29 10/21/19 05:34 Meropenem 1 gm/ Sodium Chloride 55 ml @ 110 mls/hr Q12H IVPB 10/21/19 12:00 10/26/19 11:59 10/21/19 12:19 Ondansetron HCl (Zofran) 4 mg Q8HR PRN IVP Nausea & Vomiting 10/21/19 00:00 11/20/19 00:00 Sertraline HCl (Zoloft) 50 mg DAILY ORAL 10/21/19 09:00 11/20/19 08:59 10/21/19 08:30 Tamsulosin HCl (Flomax) 0.4 mg DAILY ORAL 10/21/19 09:00 11/20/19 08:59 10/21/19 08:30 Vancomycin HCl (Vanco rx to dose) 1 ea DAILY PRN MISC Per rx protocol 10/21/19 10:15 11/20/19 10:14 Vancomycin HCl 1 gm/Dextrose 275 ml @ 183.708 mls/hr Q24H IVPB 10/21/19 13:00 10/26/19 12:59 10/21/19 13:28 Hadley Ferreira M.D. Oct 21, 2019 13:46
--- NOTE | 2019-10-21 14:08 | Diagnostic Imaging Report ---
Indication: Dyspnea Comparison: None A single view chest radiograph was obtained. Findings: Cardiomediastinal appearance is within normal limits for age. The lungs are clear. Pulmonary vascularity is appropriate. The diaphragmatic contour is smooth and costophrenic angles are sharp. No pleural effusions are identified. Fusion hardware noted extensively within the thoracic spine with the pedicle screws and fusion rods. The bones are unremarkable. Impression: No acute findings. Status post instrumented thoracic spinal fusion
[2019-10-21 16:00] VITALS: BP 132/78
--- NOTE | 2019-10-21 16:08 | Diagnostic Imaging Report ---
Indication: Abdominal pain Technique: Grayscale and duplex Doppler imaging of the abdomen performed. Comparison: None Findings: The liver is unremarkable. Doppler interrogation of the main portal vein shows patency with hepatopedal, monophasic flow. There is no biliary ductal dilatation identified. Gallstone suspected. CBD is 3 mm Pancreas and aorta are partially obscured by bowel gas. 1.5 cm cyst noted in the left kidney. Another cyst 1.2 cm noted. Kidneys unremarkable otherwise. There is no hydronephrosis. IMPRESSION: Gallstone suspected Left renal cyst
--- NOTE | 2019-10-21 16:15 | History and Physical Report ---
DATE OF ADMISSION: 10/20/2019 SOURCE OF INFORMATION: Patient and EMR. HISTORY OF PRESENT ILLNESS: The patient is a 74-year-old male with a history of hypertension, hyperlipidemia, diabetes, anxiety disorder, and atrial fibrillation. The patient is complaining of diffuse shaking and not feeling well for the last couple of days. The patient is residing in a senior care facility. The patient denies any shortness of breath. No fever. No chills. No abnormal bleeding. The patient is complaining of a feeling of nausea. Denies any abnormal bleeding. REVIEW OF SYSTEMS: All 12 elements of review of systems reviewed. Pertinent positive and negative as above. PAST MEDICAL HISTORY: As detailed above. PAST SURGICAL HISTORY: Upper back surgeries. ALLERGIES: Denies. SOCIAL HISTORY: The patient lives in a senior care facility. The patient denies history of illicit drug abuse, smoking, or tobacco use. PHYSICAL EXAMINATION: VITAL SIGNS: Blood pressure 180/80, pulse rate 120, respiratory rate 18, pulse ox 99% on 2 liters of oxygen, temperature 100.9. HEAD AND NECK: Atraumatic and normocephalic. CHEST: Clear to auscultation. HEART: S1, S2. Regular rate and rhythm. ABDOMEN: Soft. No organomegaly. MUSCULOSKELETAL: No gross lateralized motor deficit. NEUROLOGY: The patient is awake, alert, oriented x3. LABORATORY DATA: Dated 10/20/2019 shows WBC 13.5, hemoglobin of 11.8, platelets 283. Sodium 137, creatinine 1.4. . ALT of 83, AST of 46. ASSESSMENT: 1. Sepsis secondary to UTI. 2. Healthcare-associated UTI. 3. Anemia. 4. Renal failure - age indeterminate. 5. Abnormal LFT. 6. Hypertension. 7. Diabetes type 2. 8. Psychiatric disorder. 9. BPH. 10. GI and DVT prophylaxes. PLAN OF CARE: I will continue with empiric antibiotic treatment. We will do the 2D echo. Resume longterm medications pending the A1c, pending the blood cultures. Cardiology, Nephrology, Infectious Disease, and Pulmonary have been consulted. Momo Hilario M.D. DR: JOHN JOB#: [id number] CC:
--- NOTE | 2019-10-21 16:30 | Consultation ---
DATE OF CONSULTATION: 10/21/2019 CARDIAC ELECTROPHYSIOLOGY CONSULTATION CONSULTING PHYSICIAN: Rogelio Peña M.D. REFERRING PHYSICIAN: Momo Hilario M.D. REASON FOR CONSULTATION: Management of hypertension and tachycardia. HISTORY OF PRESENT ILLNESS: The patient is a 74-year-old gentleman with history of hypertension, hyperlipidemia, diabetes, who was sent in from nursing facility for shaking chills as well as tachycardia. The patient's heart rate was up to 135 beats per minute. The patient underwent an echocardiogram that showed ejection fraction of 55%. The patient was admitted and a Cardiology consultation was requested. REVIEW OF SYSTEMS: Review of systems was negative other than what is mentioned in history of present illness. PAST MEDICAL HISTORY: As mentioned above. FAMILY HISTORY: Noncontributory. SOCIAL HISTORY: [facility] in [facility]. Does not smoke or drink alcohol. PHYSICAL EXAMINATION: VITAL SIGNS: Blood pressure of 130/70, pulse 110, respirations 18, and temperature maximum 100.9. HEAD AND NECK: Shows no JVD. LUNGS: Coarse rhonchi. CARDIOVASCULAR: Regular S1 and S2 with no gallop or murmur. ABDOMEN: Soft. EXTREMITIES: No pitting edema. LABORATORY AND DIAGNOSTIC DATA: White count of 13.5, hemoglobin 11.8, hematocrit 36.7, and platelet count 282. Sodium 137, potassium 4.1, BUN of 17, creatinine 1.4, glucose of 205. Troponin negative x2. ASSESSMENT AND PLAN: 1. Tachycardia. The patient does not have any chest pain, already ruled out for myocardial infarction. Get an echocardiogram, brain natriuretic peptide for further evaluation. Cause of the patient's tachycardia could be sepsis. 2. Fever and sepsis on vancomycin and meropenem per ID. 3. Hypertension. Continue Cardizem 60 mg twice daily. 4. Diabetes on insulin. 5. Hyperlipidemia, on Lipitor. Thank you very much, Dr. Hilario, for allowing me to participate in the care of this patient. Please do not hesitate to contact me for any questions regarding my evaluation. Sincerely, Rogelio Peña M.D. DR: Gabriel JOB#: [id number] CC:
--- NOTE | 2019-10-21 19:08 | NUR ---
HAND-OFF: Report given to ITALIA Ray.
--- NOTE | 2019-10-21 19:21 | NUR ---
NURSE NOTES: Received report from ITALIA Vazquez. AAO x 4, on room air. Yi speaking. IV intact and patent. Helms intact and secured to the leg. Denied any pain or acute distress. Fall precaution maintained. Bed locked, lowest position, side rails up, alarm on, call light within reach. Will continue to monitor.
--- NOTE | 2019-10-21 19:45 | Consultation ---
DATE OF CONSULTATION: 10/21/2019 INFECTIOUS DISEASE CONSULTATION CONSULTING PHYSICIAN: Hadley Ferreira M.D. REFERRING PHYSICIAN: Momo Hilario M.D. REASON FOR CONSULTATION: Sepsis with gram-negative rods and urinary tract infection due to catheter. Recommendation for antibiotics treatment. HISTORY OF PRESENT ILLNESS: The patient is a 74-year-old male with past medical history of hypertension, hyperlipidemia, and diabetes who was sent to [facility] emergency room for possible infection and sepsis. The patient was sent from nursing facility with shaking chills, which he was experiencing earlier. He was also nauseous and had 1 episode of emesis. He was also having loose stool, but this has been cleared up as per the report from his facility. The patient had a Helms catheter placed 3 weeks ago as per his statement and it was not changed since then. Currently denies any fever, but he reports being tired with having chills sometimes. In the ER, he was having temperature of 99 with pulse of 120, which was concerning for sepsis since his white count also was elevated around 13.5, so the patient was started on meropenem and vancomycin empiric coverage and Infectious Disease consultation was requested for antibiotics treatment and further care. Today, his blood culture is growing gram-negative rods concerning for gram-negative bacteremia. As of note, the patient is [place]ian speaker mainly. Could not provide good history. Most details were obtained from the medical record and nursing staff. REVIEW OF SYSTEMS: A 12-point of systems reviewed were all negative apart from the one I mentioned above in my History and Physical. PAST MEDICAL HISTORY: Significant for hypertension, hyperlipidemia, and diabetes. PAST SURGICAL HISTORY: He had back surgery. SOCIAL HISTORY: [facility] He is retired. Denied using any drugs, tobacco, or alcohol. ALLERGIES: No known drug allergies. FAMILY HISTORY: Noncontributory. MEDICATIONS: Currently, he is on meropenem and vancomycin. For the rest of his medications, please refer to MAR. LABORATORY DATA: Labs showed white count of 13.5, hemoglobin of 11.8, platelet count of 283. BUN of 17, creatinine of 1.4. AST of 46, ALT of 83, alkaline phosphatase of 191. Urinalysis showed +3 leukocyte esterase, wbc's 20 to 30, and moderate amount of bacteria. MICROBIOLOGY: Blood culture x2 on 10/20/2019 are growing gram-negative rods. Urine culture is pending. IMAGING: Chest x-ray on admission showed no acute finding, status post instrumented thoracic spine fusion. Renal ultrasound showed prostate hypertrophy. PHYSICAL EXAMINATION: VITAL SIGNS: Temperature 97.9, pulse 112, respirations 18, blood pressure 136/82, saturation 100% on room air. GENERAL: Elderly male, lying in bed, awake, alert, comfortable, [place]ian speaker. Denied any cough or shortness of breath. No fever at the moment. HEENT: Normocephalic, atraumatic. Pupils reactive to light equally. Pale sclerae. Dry oral mucosa. No exudate or thrush. NECK: Supple. No lymphadenopathy. CARDIOVASCULAR: Regular rate and rhythm. No gallop. LUNGS: Clear bilaterally. No wheezing. No rhonchi. Normal breathing efforts. ABDOMEN: Soft, nontender, nondistended. No hepatosplenomegaly or ascites. EXTREMITIES: No edema or cyanosis. ASSESSMENT AND RECOMMENDATION: 1. Gram-negative rogelio sepsis. Source, suspect his urine infection with catheter related. Agree with meropenem for now pending identification and sensitivity. We will repeat culture in the future to confirm the clearance. We will attempt to change his Helms catheter. 2. Catheter-associated UTI. Already on meropenem pending urine culture. May need to change his Helms catheter. 3. Nausea, vomiting suspect due to the above. Continue supportive care with nausea medication and hydration. 4. Elevated transaminase. Suspect liver shock due to sepsis. Continue supportive care. Close monitor of renal function. Screen for hepatitis. Thank you for the consult. ID will continue to follow. Hadley Ferreira M.D. DR: BROOKLYNN JOB#: [id number] CC:
[2019-10-21 20:00] VITALS: BP 130/74
[2019-10-21] MEDS ORDERED: cefTRIAXone 1 GM in D5W 55 ML IVPB SCH (21:00)
[2019-10-22] VITALS: BP 122/64
[2019-10-22 04:00] VITALS: BP 135/71
[2019-10-22] MEDS: NovoLOG Insulin Flexpen SUBQ SCH ×4 (05:37→20:57)
[2019-10-22 07:20] LABS: ANION GAP 7 mmol/L (5-15); BLOOD UREA NITROGEN 11 mg/dL (7-18); CALCIUM 8.6 MG/DL (8.5-10.1); CARBON DIOXIDE 28 MMOL/L (21-32); CHLORIDE 104 MMOL/L (98-107); CREATININE 1.3 MG/DL (0.55-1.30); POTASSIUM 3.8 MMOL/L (3.5-5.1); SODIUM 139 MMOL/L (136-145)
--- NOTE | 2019-10-22 07:32 | NUR ---
HAND-OFF: Report given to ITALIA Govea.
--- NOTE | 2019-10-22 07:33 | NUR ---
NURSE NOTES: Received patient in bed, patient awake, alert, oriented x 4, no sign of distress, denies pain or dsicomfort. Bulgarian speaking.HL patent. Helms intact and secured to the leg. Fall precaution maintained. Bed locked, lowest position, side rails up, alarm on, call light within reach. Will continue to monitor. ITALIA HICKEY
--- NOTE | 2019-10-22 07:34 | Pulmonology Progress Note ---
Assessment/Plan Assessment/Plan Pulmonary Progress Note HPI: Patient is a 74 year old man from a [facility], has Past Medical History of Hypertension, Hyperlipidemia, Diabetes admitted with Urinary Tract Infection. Noted to have chills as well as nausea and vomiting. Had one episode of loose stool. Denies dysuria hematuria or back pain. He denies any subjective fevers, sweats. No chest pain, palpitations shortness of breath or cough. UTI growing GNR No new pulmonary complaints PMH: Hypertension, Atrial Fibrillation, Hyperlipidemia, Diabetes, Chronic Kidney Disease, Depression, BPH, Cholelithiasis, Depression PSH: Back surgery unspecified, Urogenital implant Allergies: No Known Allergies Physical Exam Vital Signs Noted General: Awake and alert, no acute distress HEENT: NC/AT. EOMI. Cardiovascular: RRR. HS1 and HS2 normal. No murmur appreciated Resp: Normal work of breathing. No cough, wheezing or crackles appreciated Abdomen: Abdomen is soft, nondistended. Nontender Skin: Intact. No abrasions, laceration or rash over the exposed skin MSK: Normal tone and bulk. Moving all extremities. No obvious deformity. Neuro: Awake and alert. Mentating appropriately. Back/Spine: No CVA/flank tenderness Impression: Urinary tract infection Hypertension Atrial Fibrillation previously Hyperlipidemia Diabetes Chronic Kidney Disease Depression BPH Cholelithiasis Depression Plan IV Fluids IV Antibiotics per ID [employer] Medications O2 PRN PPX Monitor labs ISS Laboratory Tests Noted EKG: Sinus tachycardia, borderline left axis, no ST segment changes. Chest X-Ray: no consolidation, no effusion, no pneumothorax, other - Hardware in the spine appears intact Subjective ROS Limited/Unobtainable: No Allergies: Coded Allergies: No Known Allergies (Unverified , 10/20/19) Objective Last 24 Hour Vital Signs Date Time Temp Pulse Resp B/P (MAP) Pulse Ox O2 Delivery O2 Flow Rate FiO2 10/22/19 04:00 99.4 99 20 135/71 (92) 96 10/22/19 00:00 98.4 93 18 122/64 (83) 99 10/21/19 20:21 110 130/74 10/21/19 20:00 98.4 110 18 130/74 (92) 99 10/21/19 19:42 Room Air 10/21/19 16:00 98.4 109 16 132/78 (96) 98 10/21/19 12:00 97.9 112 18 136/82 (100) 100 10/21/19 09:00 Room Air 10/21/19 08:31 110 130/70 10/21/19 08:00 97.8 110 17 130/70 (90) 99 Intake and Output 10/21/19 10/22/19 19:00 07:00 Intake Total 600 ml 295 ml Output Total 700 ml 2500 ml Balance -100 ml -2205 ml Intake Oral 600 ml 240 ml IV Total 55 ml Output Urine Total 700 ml 2500 ml # Voids 1 Microbiology Date/Time Source Procedure Growth Status 10/20/19 19:45 Blood Blood Culture - Preliminary Gram Negative Bacillus 1 Resulted 10/20/19 19:40 Blood Blood Culture - Preliminary Gram Negative Bacillus 1 Resulted 10/20/19 20:10 Urine,Clean Catch Urine Culture - Preliminary Resulted 10/20/19 22:00 Rectum Received Laboratory Tests 10/21/19 07:40: Troponin I 0.000, Hepatitis A IgM Antibody Negative, Hepatitis B Surface Antigen Negative, Hepatitis B Core IgM Antibody Negative, Hepatitis C Antibody < 0.1 10/21/19 16:00: Hepatitis B Surface Antigen Negative, Hepatitis C Antibody <0.1 10/22/19 06:15: Sodium Level 139, Potassium Level 3.8, Chloride Level 104, Carbon Dioxide Level 28, Anion Gap 7, Blood Urea Nitrogen 11, Creatinine 1.3, Estimat Glomerular Filtration Rate , Glucose Level 139H, Calcium Level 8.6, Pro-B-Type Natriuretic Peptide 405H, Thyroid Stimulating Hormone (TSH) 1.121, Free Thyroxine 1.30 Current Medications Medications (Trade) Dose Ordered Sig/Krzysztof Route PRN Reason Start Time Stop Time Status Last Admin Dose Admin Acetaminophen (Tylenol) 650 mg Q6H PRN ORAL Mild Pain/Temp > 100.5 10/20/19 23:45 11/19/19 23:44 10/21/19 20:20 Artificial Tears (Akwa-Tears) 2 drop Q6HR BOTH EYES 10/21/19 12:00 11/20/19 11:59 10/22/19 05:43 Aspirin (Ecotrin) 81 mg DAILY ORAL 10/21/19 09:00 11/20/19 08:59 10/21/19 08:30 Atorvastatin Calcium (Lipitor) 20 mg BEDTIME ORAL 10/21/19 21:00 11/20/19 20:59 10/21/19 20:19 Dextrose (Dextrose 50%) 25 ml Q30M PRN IV Hypoglycemia 10/20/19 23:15 11/19/19 23:14 Dextrose (Dextrose 50%) 50 ml Q30M PRN IV Hypoglycemia 10/20/19 23:15 11/19/19 23:14 Diltiazem HCl (Cardizem) 60 mg EVERY 12 HOURS ORAL 10/21/19 09:00 11/20/19 08:59 10/21/19 20:21 Docusate Sodium (Colace) 100 mg TWICE A DAY ORAL 10/21/19 09:00 11/20/19 08:59 10/21/19 17:01 Finasteride (Proscar) 5 mg DAILY ORAL 10/21/19 09:00 11/20/19 08:59 10/21/19 08:30 Heparin Sodium (Porcine) (Heparin 5000 units/ml) 5,000 units EVERY 12 HOURS SUBQ 10/21/19 09:00 11/20/19 08:59 10/21/19 20:26 Insulin Aspart (NovoLOG) BEFORE MEALS AND HS SUBQ 10/21/19 06:30 11/20/19 06:29 10/21/19 20:27 Meropenem 1 gm/ Sodium Chloride 55 ml @ 110 mls/hr Q12H IVPB 10/21/19 12:00 10/26/19 11:59 10/21/19 23:29 Ondansetron HCl (Zofran) 4 mg Q8HR PRN IVP Nausea & Vomiting 10/21/19 00:00 11/20/19 00:00 Sertraline HCl (Zoloft) 50 mg DAILY ORAL 10/21/19 09:00 11/20/19 08:59 10/21/19 08:30 Tamsulosin HCl (Flomax) 0.4 mg DAILY ORAL 10/21/19 09:00 11/20/19 08:59 10/21/19 08:30 Mega Rucker MD Oct 22, 2019 07:34
[2019-10-22 08:00] VITALS: BP 137/71
[2019-10-22] MEDS: Docusate 100mg cap ORAL SCH ×2 (08:12→17:36)
[2019-10-22] MEDS: Sertraline 50mg tab ORAL SCH (08:12)
[2019-10-22] MEDS: Aspirin EC 81mg tab ORAL SCH (08:13)
[2019-10-22] MEDS: Tamsulosin 0.4mg cap ORAL SCH (08:13)
[2019-10-22] MEDS: dilTIAZem HCl 60mg tab ORAL SCH ×2 (08:13→20:56)
[2019-10-22] MEDS: Heparin 5000 units/ml inj SUBQ SCH ×2 (08:16→20:57)
--- NOTE | 2019-10-22 10:12 | General Progress Note ---
Assessment/Plan Assessment/Plan: S: I am not feeling good. O: denies any pain or sob. PHYSICAL EXAMINATION:HEAD AND NECK: Atraumatic and normocephalic. CHEST: Clear to auscultation.HEART: S1, S2. Regular rate and rhythm. ABDOMEN: Soft. No organomegaly.MUSCULOSKELETAL: No gross lateralized motor deficit. NEUROLOGY: The patient is awake, alert, oriented x3. LABORATORY DATA: Dated 10/21 reviewed ASSESSMENT: 1. Sepsis secondary to UTI. 2. Healthcare-associated UTI. 3. Anemia. 4. Renal failure - age indeterminate. 5. Abnormal LFT. 6. Hypertension. 7. Diabetes type 2. 8. Psychiatric disorder. 9. BPH. 10. GI and DVT prophylaxes. PLAN OF CARE: Plan: DC Metformin New abx ordered Pending cultures US abd Subjective Allergies: Coded Allergies: No Known Allergies (Unverified , 10/20/19) Objective Last 24 Hour Vital Signs Date Time Temp Pulse Resp B/P (MAP) Pulse Ox O2 Delivery O2 Flow Rate FiO2 10/22/19 08:45 Room Air 10/22/19 08:13 99 135/71 10/22/19 08:00 98.2 103 20 137/71 (93) 94 10/22/19 04:00 99.4 99 20 135/71 (92) 96 10/22/19 00:00 98.4 93 18 122/64 (83) 99 10/21/19 20:21 110 130/74 10/21/19 20:00 98.4 110 18 130/74 (92) 99 10/21/19 19:42 Room Air 10/21/19 16:00 98.4 109 16 132/78 (96) 98 10/21/19 12:00 97.9 112 18 136/82 (100) 100 Intake and Output 10/21/19 10/22/19 19:00 07:00 Intake Total 600 ml 295 ml Output Total 700 ml 2500 ml Balance -100 ml -2205 ml Intake Oral 600 ml 240 ml IV Total 55 ml Output Urine Total 700 ml 2500 ml # Voids 1 Laboratory Tests 10/21/19 16:00: Hepatitis B Surface Antigen Negative, Hepatitis C Antibody <0.1 10/22/19 06:15: Sodium Level 139, Potassium Level 3.8, Chloride Level 104, Carbon Dioxide Level 28, Anion Gap 7, Blood Urea Nitrogen 11, Creatinine 1.3, Estimat Glomerular Filtration Rate , Glucose Level 139H, Calcium Level 8.6, Pro-B-Type Natriuretic Peptide 405H, Thyroid Stimulating Hormone (TSH) 1.121, Free Thyroxine 1.30 Height (Feet): 5 Height (Inches): 7.00 Weight (Pounds): 150 Momo Hilario MD Oct 22, 2019 10:12
--- NOTE | 2019-10-22 10:13 | General Progress Note ---
Assessment/Plan Status: stable Assessment/Plan: S: I am not feeling better O: denies any pain or sob. PHYSICAL EXAMINATION:HEAD AND NECK: Atraumatic and normocephalic. CHEST: Clear to auscultation.HEART: S1, S2. Regular rate and rhythm. ABDOMEN: Soft. No organomegaly.MUSCULOSKELETAL: No gross lateralized motor deficit. NEUROLOGY: The patient is awake, alert, oriented x3. LABORATORY DATA: Dated 10/22 reviewed ASSESSMENT: 1. Gram Negative Sepsis secondary to UTI. 2. Healthcare-associated UTI. 3. Anemia. 4. Renal failure - age indeterminate. 5. Abnormal LFT. 6. Hypertension. 7. Diabetes type 2. 8. Psychiatric disorder. 9. BPH. 10. GI and DVT prophylaxes. PLAN OF CARE: Plan: Notes from ID reviewed current empiricall abx Subjective Allergies: Coded Allergies: No Known Allergies (Unverified , 10/20/19) Objective Last 24 Hour Vital Signs Date Time Temp Pulse Resp B/P (MAP) Pulse Ox O2 Delivery O2 Flow Rate FiO2 10/22/19 08:45 Room Air 10/22/19 08:13 99 135/71 10/22/19 08:00 98.2 103 20 137/71 (93) 94 10/22/19 04:00 99.4 99 20 135/71 (92) 96 10/22/19 00:00 98.4 93 18 122/64 (83) 99 10/21/19 20:21 110 130/74 10/21/19 20:00 98.4 110 18 130/74 (92) 99 10/21/19 19:42 Room Air 10/21/19 16:00 98.4 109 16 132/78 (96) 98 10/21/19 12:00 97.9 112 18 136/82 (100) 100 Intake and Output 10/21/19 10/22/19 19:00 07:00 Intake Total 600 ml 295 ml Output Total 700 ml 2500 ml Balance -100 ml -2205 ml Intake Oral 600 ml 240 ml IV Total 55 ml Output Urine Total 700 ml 2500 ml # Voids 1 Laboratory Tests 10/21/19 16:00: Hepatitis B Surface Antigen Negative, Hepatitis C Antibody <0.1 10/22/19 06:15: Sodium Level 139, Potassium Level 3.8, Chloride Level 104, Carbon Dioxide Level 28, Anion Gap 7, Blood Urea Nitrogen 11, Creatinine 1.3, Estimat Glomerular Filtration Rate , Glucose Level 139H, Calcium Level 8.6, Pro-B-Type Natriuretic Peptide 405H, Thyroid Stimulating Hormone (TSH) 1.121, Free Thyroxine 1.30 Height (Feet): 5 Height (Inches): 7.00 Weight (Pounds): 150 Momo Hilario MD Oct 22, 2019 10:13
[2019-10-22] MEDS: Meropenem 1 GM in NS 55 ML IVPB SCH ×2 (11:48→23:59)
[2019-10-22 12:05] VITALS: BP 140/70
--- NOTE | 2019-10-22 12:18 | Cardiac Electrophysiology PN ---
Assessment/Plan Assessment/Plan 1. Sinus Tachycardia. The patient does not have any chest pain, already ruled out for myocardial infarction. Echocardiogram EF 55%. Cause of the patient's tachycardia could be sepsis. 2. Fever and sepsis on vancomycin and meropenem per ID. 3. Hypertension. Continue Cardizem 60 mg twice daily. 4. Diabetes on insulin. 5. Hyperlipidemia, on Lipitor. CRYSTAL RN Subjective Subjective No CP or SOB. Objective Last 24 Hour Vital Signs Date Time Temp Pulse Resp B/P (MAP) Pulse Ox O2 Delivery O2 Flow Rate FiO2 10/22/19 12:05 97.4 101 20 140/70 (93) 97 10/22/19 08:45 Room Air 10/22/19 08:13 99 135/71 10/22/19 08:00 98.2 103 20 137/71 (93) 94 10/22/19 04:00 99.4 99 20 135/71 (92) 96 10/22/19 00:00 98.4 93 18 122/64 (83) 99 10/21/19 20:21 110 130/74 10/21/19 20:00 98.4 110 18 130/74 (92) 99 10/21/19 19:42 Room Air 10/21/19 16:00 98.4 109 16 132/78 (96) 98 Intake and Output 10/21/19 10/22/19 19:00 07:00 Intake Total 600 ml 295 ml Output Total 700 ml 2500 ml Balance -100 ml -2205 ml Intake Oral 600 ml 240 ml IV Total 55 ml Output Urine Total 700 ml 2500 ml # Voids 1 Laboratory Tests Test 10/21/19 16:00 10/22/19 06:15 Hepatitis B Surface Antigen Negative (Negative) Hepatitis C Antibody <0.1 s/co ratio Sodium Level 139 MMOL/L (136-145) Potassium Level 3.8 MMOL/L (3.5-5.1) Chloride Level 104 MMOL/L (98-107) Carbon Dioxide Level 28 MMOL/L (21-32) Anion Gap 7 mmol/L (5-15) Blood Urea Nitrogen 11 mg/dL (7-18) Creatinine 1.3 MG/DL (0.55-1.30) Estimat Glomerular Filtration Rate mL/min (>60) Glucose Level 139 MG/DL (74-106) H Calcium Level 8.6 MG/DL (8.5-10.1) Pro-B-Type Natriuretic Peptide 405 pg/mL (0-125) H Thyroid Stimulating Hormone (TSH) 1.121 uiU/mL (0.358-3.740) Free Thyroxine 1.30 NG/DL (0.76-1.46) Microbiology Date/Time Source Procedure Growth Status 10/20/19 19:45 Blood Blood Culture - Preliminary Gram Negative Bacillus 1 Resulted 10/20/19 19:40 Blood Blood Culture - Preliminary Gram Negative Bacillus 1 Resulted 10/20/19 20:10 Urine,Clean Catch Urine Culture - Preliminary Gram Negative Bacillus 1 Resulted 10/20/19 22:00 Rectum Received Objective HEAD AND NECK: Shows no JVD. LUNGS: Coarse rhonchi. CARDIOVASCULAR: Regular S1 and S2 with no gallop or murmur. ABDOMEN: Soft. EXTREMITIES: No pitting edema. Rogelio Peña MD Oct 22, 2019 12:18
--- NOTE | 2019-10-22 14:04 | Infectious Diseases Prog Note ---
Assessment/Plan Problems: (1) Gram negative sepsis Assessment & Plan: source could be CAUTI , continue meropenem pending identification and sensitivity (2) Catheter-associated urinary tract infection Assessment & Plan: already on meropenem pending urine culture, may need to change cloud catheter (3) Nausea & vomiting Assessment & Plan: due to the above, continue supportive care (4) Elev transaminase/LDH Assessment & Plan: suspect due to liver shock from sepsis, continue supportive care , trends liver function, screen for hepatitis Subjective Constitutional: Reports: fatigue HEENT: Reports: no symptoms Respiratory: Reports: no symptoms Breasts: Reports: no symptoms Cardiovascular: Reports: no symptoms Gastrointestinal/Abdominal: Reports: no symptoms Genitourinary: Reports: no symptoms Neurologic: Reports: no symptoms Psychiatric: Reports: no symptoms Skin: Reports: no symptoms Endocrine: Reports: no symptoms Hematologic: Reports: no symptoms Musculoskeletal: Reports: no symptoms Allergies: Coded Allergies: No Known Allergies (Unverified , 10/20/19) Subjective feels overall better with no fever or chills Objective Vital Signs Last 24 Hour Vital Signs Date Time Temp Pulse Resp B/P (MAP) Pulse Ox O2 Delivery O2 Flow Rate FiO2 10/22/19 12:05 97.4 101 20 140/70 (93) 97 10/22/19 08:45 Room Air 10/22/19 08:13 99 135/71 10/22/19 08:00 98.2 103 20 137/71 (93) 94 10/22/19 04:00 99.4 99 20 135/71 (92) 96 10/22/19 00:00 98.4 93 18 122/64 (83) 99 10/21/19 20:21 110 130/74 10/21/19 20:00 98.4 110 18 130/74 (92) 99 10/21/19 19:42 Room Air 10/21/19 16:00 98.4 109 16 132/78 (96) 98 Height (Feet): 5 Height (Inches): 7.00 Weight (Pounds): 150 General Appearance: WD/WN, no acute distress HEENT: normocephalic, atraumatic, anicteric, mucous membranes moist, PERRL Respiratory/Chest: chest wall non-tender, lungs clear, normal breath sounds, no respiratory distress, no accessory muscle use Cardiovascular: normal peripheral pulses, normal rate, regular rhythm, no gallop/murmur, no JVD Abdomen: normal bowel sounds, soft, non tender, no organomegaly, non distended , no mass, no scars Genitourinary: normal external genitalia Extremities: no cyanosis, no clubbing Skin: no rash, no lesions, no ulcers Neurologic/Psychiatric: alert, responsive Lymphatic: no neck adenopathy, no groin adenopathy Musculoskeletal: normal muscle bulk, no effusion Microbiology Date/Time Source Procedure Growth Status 10/20/19 19:45 Blood Blood Culture - Preliminary Gram Negative Bacillus 1 Resulted 10/20/19 19:40 Blood Blood Culture - Preliminary Gram Negative Bacillus 1 Resulted 10/20/19 20:10 Urine,Clean Catch Urine Culture - Preliminary Gram Negative Bacillus 1 Resulted 10/20/19 22:00 Rectum Received Laboratory Tests Test 10/21/19 16:00 10/22/19 06:15 Hepatitis B Surface Antigen Negative (Negative) Hepatitis C Antibody <0.1 s/co ratio Sodium Level 139 MMOL/L (136-145) Potassium Level 3.8 MMOL/L (3.5-5.1) Chloride Level 104 MMOL/L (98-107) Carbon Dioxide Level 28 MMOL/L (21-32) Anion Gap 7 mmol/L (5-15) Blood Urea Nitrogen 11 mg/dL (7-18) Creatinine 1.3 MG/DL (0.55-1.30) Estimat Glomerular Filtration Rate mL/min (>60) Glucose Level 139 MG/DL (74-106) H Calcium Level 8.6 MG/DL (8.5-10.1) Pro-B-Type Natriuretic Peptide 405 pg/mL (0-125) H Thyroid Stimulating Hormone (TSH) 1.121 uiU/mL (0.358-3.740) Free Thyroxine 1.30 NG/DL (0.76-1.46) Current Medications Medications (Trade) Dose Ordered Sig/Krzysztof Route PRN Reason Start Time Stop Time Status Last Admin Dose Admin Acetaminophen (Tylenol) 650 mg Q6H PRN ORAL Mild Pain/Temp > 100.5 10/20/19 23:45 11/19/19 23:44 10/21/19 20:20 Artificial Tears (Akwa-Tears) 2 drop Q6HR BOTH EYES 10/21/19 12:00 11/20/19 11:59 10/22/19 11:44 Aspirin (Ecotrin) 81 mg DAILY ORAL 10/21/19 09:00 11/20/19 08:59 10/22/19 08:13 Atorvastatin Calcium (Lipitor) 20 mg BEDTIME ORAL 10/21/19 21:00 11/20/19 20:59 10/21/19 20:19 Dextrose (Dextrose 50%) 25 ml Q30M PRN IV Hypoglycemia 10/20/19 23:15 11/19/19 23:14 Dextrose (Dextrose 50%) 50 ml Q30M PRN IV Hypoglycemia 10/20/19 23:15 11/19/19 23:14 Diltiazem HCl (Cardizem) 60 mg EVERY 12 HOURS ORAL 10/21/19 09:00 11/20/19 08:59 10/22/19 08:13 Docusate Sodium (Colace) 100 mg TWICE A DAY ORAL 10/21/19 09:00 11/20/19 08:59 10/22/19 08:12 Finasteride (Proscar) 5 mg DAILY ORAL 10/21/19 09:00 11/20/19 08:59 10/22/19 08:13 Heparin Sodium (Porcine) (Heparin 5000 units/ml) 5,000 units EVERY 12 HOURS SUBQ 10/21/19 09:00 11/20/19 08:59 10/22/19 08:16 Insulin Aspart (NovoLOG) BEFORE MEALS AND HS SUBQ 10/21/19 06:30 11/20/19 06:29 10/22/19 11:50 Meropenem 1 gm/ Sodium Chloride 55 ml @ 110 mls/hr Q12H IVPB 10/21/19 12:00 10/26/19 11:59 10/22/19 11:48 Ondansetron HCl (Zofran) 4 mg Q8HR PRN IVP Nausea & Vomiting 10/21/19 00:00 11/20/19 00:00 Sertraline HCl (Zoloft) 50 mg DAILY ORAL 10/21/19 09:00 11/20/19 08:59 10/22/19 08:12 Tamsulosin HCl (Flomax) 0.4 mg DAILY ORAL 10/21/19 09:00 11/20/19 08:59 10/22/19 08:13 Hadley Ferreira M.D. Oct 22, 2019 14:04
[2019-10-22 16:19] VITALS: BP 137/76
--- NOTE | 2019-10-22 19:16 | NUR ---
HAND-OFF: Report given to ITALIA JOHN, resting comfortably in bed, needs met and anticipated italia morejon.
--- NOTE | 2019-10-22 19:50 | NUR ---
NURSE NOTES: Patient in bed, awake, alert and verbally responsive. Able to make needs known. Respiration is even and unlabored. NO complaint of pain or discomfort noted at this time. Skin is warm and dry to touch. Abdomen is soft and non distended. Iv site noted. Kept clean and comfortable. Provided safe environment. Call light is at bedside. Will continue plan of care.
[2019-10-22 20:00] VITALS: BP 137/68
[2019-10-23] VITALS: BP 128/66
[2019-10-23 04:00] VITALS: BP 124/66
[2019-10-23] MEDS: NovoLOG Insulin Flexpen SUBQ SCH ×4 (05:50→21:00)
--- NOTE | 2019-10-23 07:00 | NUR ---
HAND-OFF: Report given to ITALIA York Endorsed plan of care.
--- NOTE | 2019-10-23 07:04 | NUR ---
HAND-OFF: Report given to ITALIA Dimas.
--- NOTE | 2019-10-23 07:43 | NUR ---
NURSE NOTES: Handoff received from ITALIA Avila. Patient received awake and alert and able to make needs known, Patient is Czech speaking, No acute signs of distress noted. Patient has call light within reach and bed in the low and locked position. IV site is clean dry and intact, saline locked. Patient has cloud attached to bed, patent and draining. Will continue to monitor patient.
[2019-10-23 08:00] VITALS: BP 136/76
[2019-10-23 08:20] LABS: HEMATOCRIT 34.7 % (42.0-52.0); HEMOGLOBIN 11.8 G/DL (14.2-18.0); LYMPHOCYTES % (AUTO) 18.9 % (20.0-45.0); MEAN CORPUSCULAR VOLUME 91 FL (80-99); NEUTROPHILS % (AUTO) 65.2 % (45.0-75.0); PLATELET COUNT 279 K/UL (150-450); RED BLOOD COUNT 3.83 M/UL (4.70-6.10); RED CELL DISTRIBUTION WIDTH 12.1 % (11.6-14.8); WHITE BLOOD COUNT 8.6 K/UL (4.8-10.8)
[2019-10-23 08:50] LABS: ALANINE AMINOTRANSFERASE 58 U/L (12-78); ALBUMIN 2.3 G/DL (3.4-5.0); ALBUMIN/GLOBULIN RATIO 0.5 (1.0-2.7); ALKALINE PHOSPHATASE 142 U/L (46-116); ANION GAP 7 mmol/L (5-15); ASPARTATE AMINO TRANSFERASE 37 U/L (15-37); BILIRUBIN,TOTAL 0.3 MG/DL (0.2-1.0); BLOOD UREA NITROGEN 16 mg/dL (7-18); CALCIUM 9.1 MG/DL (8.5-10.1); CARBON DIOXIDE 30 MMOL/L (21-32); CHLORIDE 105 MMOL/L (98-107); CREATININE 1.2 MG/DL (0.55-1.30); POTASSIUM 3.5 MMOL/L (3.5-5.1); SODIUM 142 MMOL/L (136-145)
[2019-10-23] MEDS: dilTIAZem HCl 60mg tab ORAL SCH ×2 (09:27→21:17)
[2019-10-23] MEDS: Docusate 100mg cap ORAL SCH ×2 (09:27→17:39)
[2019-10-23] MEDS: Aspirin EC 81mg tab ORAL SCH (09:27)
[2019-10-23] MEDS: Sertraline 50mg tab ORAL SCH (09:27)
[2019-10-23] MEDS: Tamsulosin 0.4mg cap ORAL SCH (09:27)
[2019-10-23] MEDS: Heparin 5000 units/ml inj SUBQ SCH ×2 (09:30→21:24)
--- NOTE | 2019-10-23 11:21 | Cardiac Electrophysiology PN ---
Assessment/Plan Assessment/Plan 1. Sinus Tachycardia due to sepsis The patient does not have any chest pain, already ruled out for myocardial infarction. Echocardiogram EF 55%. 2. Fever and sepsis on vancomycin and meropenem per ID. 3. Hypertension. Continue Cardizem 60 mg twice daily. 4. Diabetes on insulin. 5. Hyperlipidemia, on Lipitor. CRYSTAL RN DC plan Subjective Subjective No CP or SOB. DC planning Objective Last 24 Hour Vital Signs Date Time Temp Pulse Resp B/P (MAP) Pulse Ox O2 Delivery O2 Flow Rate FiO2 10/23/19 09:27 93 136/76 10/23/19 09:00 Room Air 10/23/19 08:00 98.5 93 17 136/76 (96) 94 10/23/19 04:00 98.2 81 18 124/66 (85) 96 10/23/19 00:00 97.9 85 18 128/66 (86) 94 10/22/19 21:00 Room Air 10/22/19 20:56 96 137/68 10/22/19 20:00 98.1 96 18 137/68 (91) 94 10/22/19 16:19 99.0 103 20 137/76 (96) 94 10/22/19 12:05 97.4 101 20 140/70 (93) 97 Intake and Output 10/22/19 10/23/19 19:00 07:00 Intake Total 775 ml 675 ml Output Total 900 ml 2200 ml Balance -125 ml -1525 ml Intake Oral 720 ml 620 ml IV Total 55 ml 55 ml Output Urine Total 900 ml 2200 ml # Voids 1 # Bowel Movements 1 Laboratory Tests Test 10/23/19 07:20 White Blood Count 8.6 K/UL (4.8-10.8) Red Blood Count 3.83 M/UL (4.70-6.10) L Hemoglobin 11.8 G/DL (14.2-18.0) L Hematocrit 34.7 % (42.0-52.0) L Mean Corpuscular Volume 91 FL (80-99) Mean Corpuscular Hemoglobin 30.9 PG (27.0-31.0) Mean Corpuscular Hemoglobin Concent 34.1 G/DL (32.0-36.0) Red Cell Distribution Width 12.1 % (11.6-14.8) Platelet Count 279 K/UL (150-450) Mean Platelet Volume 6.1 FL (6.5-10.1) L Neutrophils (%) (Auto) 65.2 % (45.0-75.0) Lymphocytes (%) (Auto) 18.9 % (20.0-45.0) L Monocytes (%) (Auto) 11.0 % (1.0-10.0) H Eosinophils (%) (Auto) 4.0 % (0.0-3.0) H Basophils (%) (Auto) 1.0 % (0.0-2.0) Sodium Level 142 MMOL/L (136-145) Potassium Level 3.5 MMOL/L (3.5-5.1) Chloride Level 105 MMOL/L (98-107) Carbon Dioxide Level 30 MMOL/L (21-32) Anion Gap 7 mmol/L (5-15) Blood Urea Nitrogen 16 mg/dL (7-18) Creatinine 1.2 MG/DL (0.55-1.30) Estimat Glomerular Filtration Rate 59.5 mL/min (>60) Glucose Level 128 MG/DL (74-106) H Calcium Level 9.1 MG/DL (8.5-10.1) Total Bilirubin 0.3 MG/DL (0.2-1.0) Aspartate Amino Transf (AST/SGOT) 37 U/L (15-37) Alanine Aminotransferase (ALT/SGPT) 58 U/L (12-78) Alkaline Phosphatase 142 U/L (46-116) H Total Protein 7.3 G/DL (6.4-8.2) Albumin 2.3 G/DL (3.4-5.0) L Globulin 5.0 g/dL Albumin/Globulin Ratio 0.5 (1.0-2.7) L Microbiology Date/Time Source Procedure Growth Status 10/20/19 19:45 Blood Blood Culture - Final Escherichia Coli Complete 10/20/19 19:40 Blood Blood Culture - Final Escherichia Coli Complete 10/20/19 22:00 Nasal Nares MRSA Culture - Final NO METHICILLIN RESISTANT STAPH AUREUS... Complete 10/20/19 20:10 Urine,Clean Catch Urine Culture - Final Escherichia Coli Complete 10/20/19 22:00 Rectum - Final NO CARBAPENEM-RESISTANT ENTEROBACTERI... Complete 10/20/19 22:00 Rectum VRE Culture - Final NO VANCOMYCIN RESISTANT ENTEROCOCCUS ... Complete Objective HEAD AND NECK: Shows no JVD. LUNGS: Coarse rhonchi. CARDIOVASCULAR: Regular S1 and S2 with no gallop or murmur. ABDOMEN: Soft. EXTREMITIES: No pitting edema. Rogelio Peña MD Oct 23, 2019 11:21
[2019-10-23] MEDS: Meropenem 1 GM in NS 55 ML IVPB SCH (11:54)
[2019-10-23 12:00] VITALS: BP 128/75
--- NOTE | 2019-10-23 13:11 | NUR ---
CASE MANAGEMENT:REVIEW SI;SEPSIS. UTI. DM. 98.5 96 20 136/76 94% ON RA ALK PH 142 IS;MEROPENEM IV Q12 HRS CARDIZEM PO Q12 HRS MED SURG STATUS DCP;FROM [facility]
--- NOTE | 2019-10-23 15:39 | General Progress Note ---
Assessment/Plan Status: stable Assessment/Plan: S: I am feeling better O: denies any pain or sob. PHYSICAL EXAMINATION:HEAD AND NECK: Atraumatic and normocephalic. CHEST: Clear to auscultation.HEART: S1, S2. Regular rate and rhythm. ABDOMEN: Soft. No organomegaly.MUSCULOSKELETAL: No gross lateralized motor deficit. NEUROLOGY: The patient is awake, alert, oriented x3. LABORATORY DATA: Dated 10/23 reviewed ASSESSMENT: 1. Gram Negative Sepsis secondary to UTI. 2. Healthcare-associated UTI. 3. Anemia. 4. Renal failure - age indeterminate. 5. Abnormal LFT. 6. Hypertension. 7. Diabetes type 2. 8. Psychiatric disorder. 9. BPH. 10. GI and DVT prophylaxes. PLAN OF CARE: Plan: Case Discussed with ID reviewed current empirically abx pending negative blood culture Comment: D/w Dtr about overall care yesterday Subjective Allergies: Coded Allergies: No Known Allergies (Unverified , 10/20/19) Objective Last 24 Hour Vital Signs Date Time Temp Pulse Resp B/P (MAP) Pulse Ox O2 Delivery O2 Flow Rate FiO2 10/23/19 12:00 98.4 92 18 128/75 (92) 94 10/23/19 09:27 93 136/76 10/23/19 09:00 Room Air 10/23/19 08:00 98.5 93 17 136/76 (96) 94 10/23/19 04:00 98.2 81 18 124/66 (85) 96 10/23/19 00:00 97.9 85 18 128/66 (86) 94 10/22/19 21:00 Room Air 10/22/19 20:56 96 137/68 10/22/19 20:00 98.1 96 18 137/68 (91) 94 10/22/19 16:19 99.0 103 20 137/76 (96) 94 Intake and Output 10/22/19 10/23/19 19:00 07:00 Intake Total 775 ml 675 ml Output Total 900 ml 2200 ml Balance -125 ml -1525 ml Intake Oral 720 ml 620 ml IV Total 55 ml 55 ml Output Urine Total 900 ml 2200 ml # Voids 1 # Bowel Movements 1 Laboratory Tests 10/23/19 07:20: White Blood Count 8.6, Red Blood Count 3.83L, Hemoglobin 11.8L, Hematocrit 34.7L , Mean Corpuscular Volume 91, Mean Corpuscular Hemoglobin 30.9, Mean Corpuscular Hemoglobin Concent 34.1, Red Cell Distribution Width 12.1, Platelet Count 279, Mean Platelet Volume 6.1L, Neutrophils (%) (Auto) 65.2, Lymphocytes ( %) (Auto) 18.9L, Monocytes (%) (Auto) 11.0H, Eosinophils (%) (Auto) 4.0H, Basophils (%) (Auto) 1.0, Sodium Level 142, Potassium Level 3.5, Chloride Level 105, Carbon Dioxide Level 30, Anion Gap 7, Blood Urea Nitrogen 16, Creatinine 1.2, Estimat Glomerular Filtration Rate 59.5, Glucose Level 128H, Calcium Level 9.1, Total Bilirubin 0.3, Aspartate Amino Transf (AST/SGOT) 37, Alanine Aminotransferase (ALT/SGPT) 58, Alkaline Phosphatase 142H, Total Protein 7.3, Albumin 2.3L, Globulin 5.0, Albumin/Globulin Ratio 0.5L Height (Feet): 5 Height (Inches): 7.00 Weight (Pounds): 189 Momo Hilario MD Oct 23, 2019 15:39
--- NOTE | 2019-10-23 15:52 | Infectious Diseases Prog Note ---
Assessment/Plan Problems: (1) Gram negative sepsis Assessment & Plan: with E coli source most likely CAUTI , will switch meropenem to ceftriaxone for two weeks , await repeated blood culture to confirm clearance (2) Catheter-associated urinary tract infection Assessment & Plan: with E coli on meropenem , will switch to ceftriaxone for two weeks , recommend to change cloud catheter if not done yet (3) Nausea & vomiting Assessment & Plan: due to the above, resolved , continue supportive care (4) Elev transaminase/LDH Assessment & Plan: suspect due to liver shock from sepsis, continue supportive care , trends liver function, screen for hepatitis Subjective Constitutional: Reports: no symptoms HEENT: Reports: no symptoms Respiratory: Reports: no symptoms Breasts: Reports: no symptoms Cardiovascular: Reports: no symptoms Gastrointestinal/Abdominal: Reports: no symptoms Genitourinary: Reports: no symptoms Neurologic: Reports: no symptoms Psychiatric: Reports: no symptoms Skin: Reports: no symptoms Endocrine: Reports: no symptoms Hematologic: Reports: no symptoms Musculoskeletal: Reports: no symptoms Allergies: Coded Allergies: No Known Allergies (Unverified , 10/20/19) Subjective feels overall better with no fever or chills Objective Vital Signs Last 24 Hour Vital Signs Date Time Temp Pulse Resp B/P (MAP) Pulse Ox O2 Delivery O2 Flow Rate FiO2 10/23/19 12:00 98.4 92 18 128/75 (92) 94 10/23/19 09:27 93 136/76 10/23/19 09:00 Room Air 10/23/19 08:00 98.5 93 17 136/76 (96) 94 10/23/19 04:00 98.2 81 18 124/66 (85) 96 10/23/19 00:00 97.9 85 18 128/66 (86) 94 10/22/19 21:00 Room Air 10/22/19 20:56 96 137/68 10/22/19 20:00 98.1 96 18 137/68 (91) 94 10/22/19 16:19 99.0 103 20 137/76 (96) 94 Height (Feet): 5 Height (Inches): 7.00 Weight (Pounds): 189 General Appearance: WD/WN, no acute distress HEENT: normocephalic, atraumatic, anicteric, mucous membranes moist Respiratory/Chest: chest wall non-tender, lungs clear, normal breath sounds, no respiratory distress, no accessory muscle use Cardiovascular: normal peripheral pulses, normal rate, regular rhythm, no gallop/murmur, no JVD Abdomen: normal bowel sounds, soft, non tender, no organomegaly, non distended , no mass, no scars Genitourinary: normal external genitalia Extremities: no cyanosis, no clubbing Skin: no rash, no lesions, no ulcers 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 Complete 10/20/19 20:10 Urine,Clean Catch Urine Culture - Final Escherichia Coli Complete 10/20/19 22:00 Rectum - Final NO CARBAPENEM-RESISTANT ENTEROBACTERI... Complete 10/20/19 22:00 Rectum VRE Culture - Final NO VANCOMYCIN RESISTANT ENTEROCOCCUS ... Complete Laboratory Tests Test 10/23/19 07:20 White Blood Count 8.6 K/UL (4.8-10.8) Red Blood Count 3.83 M/UL (4.70-6.10) L Hemoglobin 11.8 G/DL (14.2-18.0) L Hematocrit 34.7 % (42.0-52.0) L Mean Corpuscular Volume 91 FL (80-99) Mean Corpuscular Hemoglobin 30.9 PG (27.0-31.0) Mean Corpuscular Hemoglobin Concent 34.1 G/DL (32.0-36.0) Red Cell Distribution Width 12.1 % (11.6-14.8) Platelet Count 279 K/UL (150-450) Mean Platelet Volume 6.1 FL (6.5-10.1) L Neutrophils (%) (Auto) 65.2 % (45.0-75.0) Lymphocytes (%) (Auto) 18.9 % (20.0-45.0) L Monocytes (%) (Auto) 11.0 % (1.0-10.0) H Eosinophils (%) (Auto) 4.0 % (0.0-3.0) H Basophils (%) (Auto) 1.0 % (0.0-2.0) Sodium Level 142 MMOL/L (136-145) Potassium Level 3.5 MMOL/L (3.5-5.1) Chloride Level 105 MMOL/L (98-107) Carbon Dioxide Level 30 MMOL/L (21-32) Anion Gap 7 mmol/L (5-15) Blood Urea Nitrogen 16 mg/dL (7-18) Creatinine 1.2 MG/DL (0.55-1.30) Estimat Glomerular Filtration Rate 59.5 mL/min (>60) Glucose Level 128 MG/DL (74-106) H Calcium Level 9.1 MG/DL (8.5-10.1) Total Bilirubin 0.3 MG/DL (0.2-1.0) Aspartate Amino Transf (AST/SGOT) 37 U/L (15-37) Alanine Aminotransferase (ALT/SGPT) 58 U/L (12-78) Alkaline Phosphatase 142 U/L (46-116) H Total Protein 7.3 G/DL (6.4-8.2) Albumin 2.3 G/DL (3.4-5.0) L Globulin 5.0 g/dL Albumin/Globulin Ratio 0.5 (1.0-2.7) L Current Medications Medications (Trade) Dose Ordered Sig/Krzysztof Route PRN Reason Start Time Stop Time Status Last Admin Dose Admin Acetaminophen (Tylenol) 650 mg Q6H PRN ORAL Mild Pain/Temp > 100.5 10/20/19 23:45 11/19/19 23:44 10/22/19 23:59 Artificial Tears (Akwa-Tears) 2 drop Q6HR BOTH EYES 10/21/19 12:00 11/20/19 11:59 10/23/19 11:54 Aspirin (Ecotrin) 81 mg DAILY ORAL 10/21/19 09:00 11/20/19 08:59 10/23/19 09:27 Atorvastatin Calcium (Lipitor) 20 mg BEDTIME ORAL 10/21/19 21:00 11/20/19 20:59 10/22/19 20:56 Dextrose (Dextrose 50%) 25 ml Q30M PRN IV Hypoglycemia 10/20/19 23:15 11/19/19 23:14 Dextrose (Dextrose 50%) 50 ml Q30M PRN IV Hypoglycemia 10/20/19 23:15 11/19/19 23:14 Diltiazem HCl (Cardizem) 60 mg EVERY 12 HOURS ORAL 10/21/19 09:00 11/20/19 08:59 10/23/19 09:27 Docusate Sodium (Colace) 100 mg TWICE A DAY ORAL 10/21/19 09:00 11/20/19 08:59 10/23/19 09:27 Finasteride (Proscar) 5 mg DAILY ORAL 10/21/19 09:00 11/20/19 08:59 10/23/19 09:27 Heparin Sodium (Porcine) (Heparin 5000 units/ml) 5,000 units EVERY 12 HOURS SUBQ 10/21/19 09:00 11/20/19 08:59 10/23/19 09:30 Insulin Aspart (NovoLOG) BEFORE MEALS AND HS SUBQ 10/21/19 06:30 11/20/19 06:29 10/22/19 20:57 Meropenem 1 gm/ Sodium Chloride 55 ml @ 110 mls/hr Q12H IVPB 10/21/19 12:00 10/26/19 11:59 10/23/19 11:54 Ondansetron HCl (Zofran) 4 mg Q8HR PRN IVP Nausea & Vomiting 10/21/19 00:00 11/20/19 00:00 10/22/19 23:59 Sertraline HCl (Zoloft) 50 mg DAILY ORAL 10/21/19 09:00 11/20/19 08:59 10/23/19 09:27 Tamsulosin HCl (Flomax) 0.4 mg DAILY ORAL 10/21/19 09:00 11/20/19 08:59 10/23/19 09:27 Hadley Ferreira M.D. Oct 23, 2019 15:52
[2019-10-23 16:00] VITALS: BP 131/78
[2019-10-23] MEDS: cefTRIAXone 2 GM in D5W 55 ML IVPB SCH (17:39)
--- NOTE | 2019-10-23 18:47 | Pulmonology Progress Note ---
Assessment/Plan Assessment/Plan Pulmonary Progress Note HPI: Patient is a 74 year old man from a Shelter, has Past Medical History of Hypertension, Hyperlipidemia, Diabetes admitted with Urinary Tract Infection. Noted to have chills as well as nausea and vomiting. Had one episode of loose stool. Denies dysuria hematuria or back pain. He denies any subjective fevers, sweats. No chest pain, palpitations shortness of breath or cough. UTI growing GNR No new pulmonary complaints PMH: Hypertension, Atrial Fibrillation, Hyperlipidemia, Diabetes, Chronic Kidney Disease, Depression, BPH, Cholelithiasis, Depression PSH: Back surgery unspecified, Urogenital implant Allergies: No Known Allergies Physical Exam Vital Signs Noted General: Awake and alert, no acute distress HEENT: NC/AT. EOMI. Cardiovascular: RRR. HS1 and HS2 normal. No murmur appreciated Resp: Normal work of breathing. No cough, wheezing or crackles appreciated Abdomen: Abdomen is soft, nondistended. Nontender Skin: Intact. No abrasions, laceration or rash over the exposed skin MSK: Normal tone and bulk. Moving all extremities. No obvious deformity. Neuro: Awake and alert. Mentating appropriately. Back/Spine: No CVA/flank tenderness Impression: Urinary tract infection Hypertension Atrial Fibrillation previously Hyperlipidemia Diabetes Chronic Kidney Disease Depression BPH Cholelithiasis Depression Plan IV Fluids IV Antibiotics per ID DIALYSIS NURSE Medications O2 PRN PPX Monitor labs ISS Laboratory Tests Noted EKG: Sinus tachycardia, borderline left axis, no ST segment changes. Chest X-Ray: no consolidation, no effusion, no pneumothorax, other - Hardware in the spine appears intact Subjective ROS Limited/Unobtainable: No Allergies: Coded Allergies: No Known Allergies (Unverified , 10/20/19) Objective Last 24 Hour Vital Signs Date Time Temp Pulse Resp B/P (MAP) Pulse Ox O2 Delivery O2 Flow Rate FiO2 10/23/19 16:00 98.4 102 18 131/78 (95) 96 10/23/19 12:00 98.4 92 18 128/75 (92) 94 10/23/19 09:27 93 136/76 10/23/19 09:00 Room Air 10/23/19 08:00 98.5 93 17 136/76 (96) 94 10/23/19 04:00 98.2 81 18 124/66 (85) 96 10/23/19 00:00 97.9 85 18 128/66 (86) 94 10/22/19 21:00 Room Air 10/22/19 20:56 96 137/68 10/22/19 20:00 98.1 96 18 137/68 (91) 94 Intake and Output 10/22/19 10/23/19 19:00 07:00 Intake Total 775 ml 675 ml Output Total 900 ml 2200 ml Balance -125 ml -1525 ml Intake Oral 720 ml 620 ml IV Total 55 ml 55 ml Output Urine Total 900 ml 2200 ml # Voids 1 # Bowel Movements 1 Microbiology Date/Time Source Procedure Growth Status 10/20/19 19:45 Blood Blood Culture - Final Escherichia Coli Complete 10/20/19 19:40 Blood Blood Culture - Final Escherichia Coli Complete 10/20/19 22:00 Nasal Nares MRSA Culture - Final NO METHICILLIN RESISTANT STAPH AUREUS... Complete 10/20/19 20:10 Urine,Clean Catch Urine Culture - Final Escherichia Coli Complete 10/20/19 22:00 Rectum - Final NO CARBAPENEM-RESISTANT ENTEROBACTERI... Complete 10/20/19 22:00 Rectum VRE Culture - Final NO VANCOMYCIN RESISTANT ENTEROCOCCUS ... Complete Laboratory Tests 10/23/19 07:20: White Blood Count 8.6, Red Blood Count 3.83L, Hemoglobin 11.8L, Hematocrit 34.7L , Mean Corpuscular Volume 91, Mean Corpuscular Hemoglobin 30.9, Mean Corpuscular Hemoglobin Concent 34.1, Red Cell Distribution Width 12.1, Platelet Count 279, Mean Platelet Volume 6.1L, Neutrophils (%) (Auto) 65.2, Lymphocytes ( %) (Auto) 18.9L, Monocytes (%) (Auto) 11.0H, Eosinophils (%) (Auto) 4.0H, Basophils (%) (Auto) 1.0, Sodium Level 142, Potassium Level 3.5, Chloride Level 105, Carbon Dioxide Level 30, Anion Gap 7, Blood Urea Nitrogen 16, Creatinine 1.2, Estimat Glomerular Filtration Rate 59.5, Glucose Level 128H, Calcium Level 9.1, Total Bilirubin 0.3, Aspartate Amino Transf (AST/SGOT) 37, Alanine Aminotransferase (ALT/SGPT) 58, Alkaline Phosphatase 142H, Total Protein 7.3, Albumin 2.3L, Globulin 5.0, Albumin/Globulin Ratio 0.5L Current Medications Medications (Trade) Dose Ordered Sig/Krzysztof Route PRN Reason Start Time Stop Time Status Last Admin Dose Admin Acetaminophen (Tylenol) 650 mg Q6H PRN ORAL Mild Pain/Temp > 100.5 10/20/19 23:45 11/19/19 23:44 10/22/19 23:59 Artificial Tears (Akwa-Tears) 2 drop Q6HR BOTH EYES 10/21/19 12:00 11/20/19 11:59 10/23/19 17:49 Aspirin (Ecotrin) 81 mg DAILY ORAL 10/21/19 09:00 11/20/19 08:59 10/23/19 09:27 Atorvastatin Calcium (Lipitor) 20 mg BEDTIME ORAL 10/21/19 21:00 11/20/19 20:59 10/22/19 20:56 Ceftriaxone Sodium 2 gm/ Dextrose 55 ml @ 110 mls/hr Q24H IVPB 10/23/19 17:00 10/30/19 16:59 10/23/19 17:39 Dextrose (Dextrose 50%) 25 ml Q30M PRN IV Hypoglycemia 10/20/19 23:15 11/19/19 23:14 Dextrose (Dextrose 50%) 50 ml Q30M PRN IV Hypoglycemia 10/20/19 23:15 11/19/19 23:14 Diltiazem HCl (Cardizem) 60 mg EVERY 12 HOURS ORAL 10/21/19 09:00 11/20/19 08:59 10/23/19 09:27 Docusate Sodium (Colace) 100 mg TWICE A DAY ORAL 10/21/19 09:00 11/20/19 08:59 10/23/19 17:39 Finasteride (Proscar) 5 mg DAILY ORAL 10/21/19 09:00 11/20/19 08:59 10/23/19 09:27 Heparin Sodium (Porcine) (Heparin 5000 units/ml) 5,000 units EVERY 12 HOURS SUBQ 10/21/19 09:00 11/20/19 08:59 10/23/19 09:30 Insulin Aspart (NovoLOG) BEFORE MEALS AND HS SUBQ 10/21/19 06:30 11/20/19 06:29 10/22/19 20:57 Ondansetron HCl (Zofran) 4 mg Q8HR PRN IVP Nausea & Vomiting 10/21/19 00:00 11/20/19 00:00 10/22/19 23:59 Sertraline HCl (Zoloft) 50 mg DAILY ORAL 10/21/19 09:00 11/20/19 08:59 10/23/19 09:27 Tamsulosin HCl (Flomax) 0.4 mg DAILY ORAL 10/21/19 09:00 11/20/19 08:59 10/23/19 09:27 Mega Rucker MD Oct 23, 2019 18:47
--- NOTE | 2019-10-23 19:45 | NUR ---
NURSE NOTES: Received report from ITALIA Rosales. Patient in bed, awake and able to make needs known. On room air with no signs of distress or SOB. IV intact and patent. Helms in place and draining well. Bed locked and in lowest position. Call light in reach. Will continue to monitor.
[2019-10-23 20:00] VITALS: BP 158/76
[2019-10-24] VITALS: BP 129/69
[2019-10-24 04:00] VITALS: BP 137/75
[2019-10-24] MEDS: NovoLOG Insulin Flexpen SUBQ SCH ×4 (05:31→20:48)
[2019-10-24 06:12] LABS: BASOPHILS % (AUTO) 0.8 % (0.0-2.0); EOSINOPHILS % (AUTO) 3.7 % (0.0-3.0); HEMATOCRIT 33.9 % (42.0-52.0); HEMOGLOBIN 11.6 G/DL (14.2-18.0); LYMPHOCYTES % (AUTO) 26.8 % (20.0-45.0); MEAN CORPUSCULAR VOLUME 90 FL (80-99); MONOCYTES % (AUTO) 9.7 % (1.0-10.0); NEUTROPHILS % (AUTO) 59.1 % (45.0-75.0); PLATELET COUNT 288 K/UL (150-450); RED BLOOD COUNT 3.78 M/UL (4.70-6.10); WHITE BLOOD COUNT 8.1 K/UL (4.8-10.8)
[2019-10-24 06:52] LABS: ALANINE AMINOTRANSFERASE 56 U/L (12-78); ALBUMIN 2.3 G/DL (3.4-5.0); ALBUMIN/GLOBULIN RATIO 0.5 (1.0-2.7); ALKALINE PHOSPHATASE 130 U/L (46-116); ANION GAP 7 mmol/L (5-15); ASPARTATE AMINO TRANSFERASE 34 U/L (15-37); BILIRUBIN,TOTAL 0.2 MG/DL (0.2-1.0); BLOOD UREA NITROGEN 20 mg/dL (7-18); CALCIUM 9.2 MG/DL (8.5-10.1); CARBON DIOXIDE 30 MMOL/L (21-32); CHLORIDE 105 MMOL/L (98-107); CREATININE 1.1 MG/DL (0.55-1.30); POTASSIUM 3.9 MMOL/L (3.5-5.1); SODIUM 142 MMOL/L (136-145)
--- NOTE | 2019-10-24 07:42 | NUR ---
HAND-OFF: Report given to ITALIA Douglas.
[2019-10-24 08:00] VITALS: BP 133/81
[2019-10-24] MEDS: Tamsulosin 0.4mg cap ORAL SCH (09:22)
[2019-10-24] MEDS: Sertraline 50mg tab ORAL SCH (09:23)
[2019-10-24] MEDS: Docusate 100mg cap ORAL SCH ×2 (09:23→17:59)
[2019-10-24] MEDS: dilTIAZem HCl 60mg tab ORAL SCH ×2 (09:23→20:47)
[2019-10-24] MEDS: Aspirin EC 81mg tab ORAL SCH (09:23)
[2019-10-24] MEDS: Heparin 5000 units/ml inj SUBQ SCH ×2 (09:24→20:52)
[2019-10-24 12:00] VITALS: BP 128/76
--- NOTE | 2019-10-24 13:30 | Pulmonology Progress Note ---
Assessment/Plan Assessment/Plan Pulmonary Progress Note HPI: Patient is a 74 year old man from a [facility], has Past Medical History of Hypertension, Hyperlipidemia, Diabetes admitted with Urinary Tract Infection. Noted to have chills as well as nausea and vomiting. Had one episode of loose stool. Denies dysuria hematuria or back pain. He denies any subjective fevers, sweats. No chest pain, palpitations shortness of breath or cough. UTI growing GNR Urine/blood No new pulmonary complaints PMH: Hypertension, Atrial Fibrillation, Hyperlipidemia, Diabetes, Chronic Kidney Disease, Depression, BPH, Cholelithiasis, Depression PSH: Back surgery unspecified, Urogenital implant Allergies: No Known Allergies Physical Exam Vital Signs Noted General: Awake and alert, no acute distress HEENT: NC/AT. EOMI. Cardiovascular: RRR. HS1 and HS2 normal. No murmur appreciated Resp: Normal work of breathing. No cough, CTAB Abdomen: Abdomen is soft, nondistended. Nontender Skin: Intact. No abrasions, laceration or rash over the exposed skin MSK: Normal tone and bulk. Moving all extremities. No obvious deformity. Neuro: Awake and alert. Mentating appropriately. 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 Chest X-Ray: no consolidation, no effusion, no pneumothorax, other - Hardware in the spine appears intact CULTURE BLOOD Final ALONDRA/AERO GRAM NEG RODS SEEN PREVIOUSLY REPORTED Organism 1 ESCHERICHIA COLI ESC COLI M.I.C. RX --------- --- AMPICILLIN >=32 R CEFAZOLIN <=4 S CEFTRIAXONE <=1 S CIPROFLOXACIN 1 S GENTAMICIN >=16 R LEVOFLOXACIN 1 S IMIPENEM <=0.25 S TRIMETHOPRIM/SULFA >=320 R AMIKACIN <=2 S PIPERACILLIN/TAZOBACTAM <=4 S Subjective ROS Limited/Unobtainable: No Allergies: Coded Allergies: No Known Allergies (Unverified , 10/20/19) Objective Last 24 Hour Vital Signs Date Time Temp Pulse Resp B/P (MAP) Pulse Ox O2 Delivery O2 Flow Rate FiO2 10/24/19 12:00 98.4 92 20 128/76 (93) 94 10/24/19 09:23 99 133/81 10/24/19 09:00 Room Air 10/24/19 08:00 98.3 99 20 133/81 (98) 93 10/24/19 04:00 98.1 90 18 137/75 (95) 96 10/24/19 00:00 98.1 83 18 129/69 (89) 95 10/23/19 21:17 95 158/76 10/23/19 20:08 Room Air 10/23/19 20:00 99.3 95 18 158/76 (103) 95 10/23/19 16:00 98.4 102 18 131/78 (95) 96 Intake and Output 10/23/19 10/24/19 19:00 07:00 Intake Total 640 ml 480 ml Output Total 1200 ml 1250 ml Balance -560 ml -770 ml Intake Oral 640 ml 480 ml Output Urine Total 1200 ml 1250 ml # Voids 1 Laboratory Tests 10/24/19 04:34: White Blood Count 8.1, Red Blood Count 3.78L, Hemoglobin 11.6L, Hematocrit 33.9L , Mean Corpuscular Volume 90, Mean Corpuscular Hemoglobin 30.7, Mean Corpuscular Hemoglobin Concent 34.3, Red Cell Distribution Width 12.0, Platelet Count 288, Mean Platelet Volume 5.7L, Neutrophils (%) (Auto) 59.1, Lymphocytes ( %) (Auto) 26.8, Monocytes (%) (Auto) 9.7, Eosinophils (%) (Auto) 3.7H, Basophils (%) (Auto) 0.8, Sodium Level 142, Potassium Level 3.9, Chloride Level 105, Carbon Dioxide Level 30, Anion Gap 7, Blood Urea Nitrogen 20H, Creatinine 1.1, Estimat Glomerular Filtration Rate > 60, Glucose Level 122H, Calcium Level 9.2, Total Bilirubin 0.2, Aspartate Amino Transf (AST/SGOT) 34, Alanine Aminotransferase (ALT/SGPT) 56, Alkaline Phosphatase 130H, Total Protein 7.1, Albumin 2.3L, Globulin 4.8, Albumin/Globulin Ratio 0.5L Current Medications Medications (Trade) Dose Ordered Sig/Krzysztof Route PRN Reason Start Time Stop Time Status Last Admin Dose Admin Acetaminophen (Tylenol) 650 mg Q6H PRN ORAL Mild Pain/Temp > 100.5 10/20/19 23:45 11/19/19 23:44 10/23/19 21:20 Artificial Tears (Akwa-Tears) 2 drop Q6HR BOTH EYES 10/21/19 12:00 11/20/19 11:59 10/24/19 12:17 Aspirin (Ecotrin) 81 mg DAILY ORAL 10/21/19 09:00 11/20/19 08:59 10/24/19 09:23 Atorvastatin Calcium (Lipitor) 20 mg BEDTIME ORAL 10/21/19 21:00 11/20/19 20:59 10/23/19 21:17 Ceftriaxone Sodium 2 gm/ Dextrose 55 ml @ 110 mls/hr Q24H IVPB 10/23/19 17:00 10/30/19 16:59 10/23/19 17:39 Dextrose (Dextrose 50%) 25 ml Q30M PRN IV Hypoglycemia 10/20/19 23:15 11/19/19 23:14 Dextrose (Dextrose 50%) 50 ml Q30M PRN IV Hypoglycemia 10/20/19 23:15 11/19/19 23:14 Diltiazem HCl (Cardizem) 60 mg EVERY 12 HOURS ORAL 10/21/19 09:00 11/20/19 08:59 10/24/19 09:23 Docusate Sodium (Colace) 100 mg TWICE A DAY ORAL 10/21/19 09:00 11/20/19 08:59 10/24/19 09:23 Finasteride (Proscar) 5 mg DAILY ORAL 10/21/19 09:00 11/20/19 08:59 10/24/19 09:23 Heparin Sodium (Porcine) (Heparin 5000 units/ml) 5,000 units EVERY 12 HOURS SUBQ 10/21/19 09:00 11/20/19 08:59 10/24/19 09:24 Insulin Aspart (NovoLOG) BEFORE MEALS AND HS SUBQ 10/21/19 06:30 11/20/19 06:29 10/24/19 12:16 Ondansetron HCl (Zofran) 4 mg Q8HR PRN IVP Nausea & Vomiting 10/21/19 00:00 11/20/19 00:00 10/22/19 23:59 Sertraline HCl (Zoloft) 50 mg DAILY ORAL 10/21/19:00 11/20/19 08:59 10/24/19 09:23 Tamsulosin HCl (Flomax) 0.4 mg DAILY ORAL 10/21/19 09:00 11/20/19 08:59 10/24/19 09:22 Mega Rucker MD Oct 24, 2019 13:30
--- NOTE | 2019-10-24 13:34 | Infectious Diseases Prog Note ---
Assessment/Plan Problems: (1) Gram negative sepsis Assessment & Plan: with E coli source most likely CAUTI , continue ceftriaxone for two weeks , await repeated blood culture to confirm clearance (2) Catheter-associated urinary tract infection Assessment & Plan: with E coli on meropenem , now on ceftriaxone for two weeks , recommend to change cloud catheter if not done yet (3) Nausea & vomiting Assessment & Plan: due to the above, resolved , continue supportive care (4) Elev transaminase/LDH Assessment & Plan: suspect due to liver shock from sepsis, continue supportive care , trends liver function, screen for hepatitis is negative Subjective Constitutional: Reports: no symptoms HEENT: Reports: no symptoms Respiratory: Reports: no symptoms Breasts: Reports: no symptoms Cardiovascular: Reports: no symptoms Gastrointestinal/Abdominal: Reports: no symptoms Genitourinary: Reports: no symptoms Neurologic: Reports: no symptoms Psychiatric: Reports: no symptoms Skin: Reports: no symptoms Endocrine: Reports: no symptoms Hematologic: Reports: no symptoms Musculoskeletal: Reports: no symptoms Allergies: Coded Allergies: No Known Allergies (Unverified , 10/20/19) Subjective feels overall better with no fever or chills Objective Vital Signs Last 24 Hour Vital Signs Date Time Temp Pulse Resp B/P (MAP) Pulse Ox O2 Delivery O2 Flow Rate FiO2 10/24/19 12:00 98.4 92 20 128/76 (93) 94 10/24/19 09:23 99 133/81 10/24/19 09:00 Room Air 10/24/19 08:00 98.3 99 20 133/81 (98) 93 10/24/19 04:00 98.1 90 18 137/75 (95) 96 10/24/19 00:00 98.1 83 18 129/69 (89) 95 10/23/19 21:17 95 158/76 10/23/19 20:08 Room Air 10/23/19 20:00 99.3 95 18 158/76 (103) 95 10/23/19 16:00 98.4 102 18 131/78 (95) 96 Height (Feet): 5 Height (Inches): 7.00 Weight (Pounds): 189 General Appearance: WD/WN, no acute distress HEENT: normocephalic, atraumatic, anicteric, mucous membranes moist, PERRL Respiratory/Chest: chest wall non-tender, lungs clear, normal breath sounds, no respiratory distress, no accessory muscle use, respiratory distress Cardiovascular: normal peripheral pulses, normal rate, regular rhythm, no gallop/murmur, no JVD Abdomen: normal bowel sounds, soft, non tender, no organomegaly, non distended , no mass, no scars Genitourinary: normal external genitalia Extremities: no cyanosis, no clubbing Skin: no rash, no lesions, no ulcers 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0) Lymphocytes (%) (Auto) 26.8 % (20.0-45.0) Monocytes (%) (Auto) 9.7 % (1.0-10.0) Eosinophils (%) (Auto) 3.7 % (0.0-3.0) H Basophils (%) (Auto) 0.8 % (0.0-2.0) Sodium Level 142 MMOL/L (136-145) Potassium Level 3.9 MMOL/L (3.5-5.1) Chloride Level 105 MMOL/L (98-107) Carbon Dioxide Level 30 MMOL/L (21-32) Anion Gap 7 mmol/L (5-15) Blood Urea Nitrogen 20 mg/dL (7-18) H Creatinine 1.1 MG/DL (0.55-1.30) Estimat Glomerular Filtration Rate > 60 mL/min (>60) Glucose Level 122 MG/DL (74-106) H Calcium Level 9.2 MG/DL (8.5-10.1) Total Bilirubin 0.2 MG/DL (0.2-1.0) Aspartate Amino Transf (AST/SGOT) 34 U/L (15-37) Alanine Aminotransferase (ALT/SGPT) 56 U/L (12-78) Alkaline Phosphatase 130 U/L (46-116) H Total Protein 7.1 G/DL (6.4-8.2) Albumin 2.3 G/DL (3.4-5.0) L Globulin 4.8 g/dL Albumin/Globulin Ratio 0.5 (1.0-2.7) L Current Medications Medications (Trade) Dose Ordered Sig/Krzysztof Route PRN Reason Start Time Stop Time Status Last Admin Dose Admin Acetaminophen (Tylenol) 650 mg Q6H PRN ORAL Mild Pain/Temp > 100.5 10/20/19 23:45 11/19/19 23:44 10/23/19 21:20 Artificial Tears (Akwa-Tears) 2 drop Q6HR BOTH EYES 10/21/19 12:00 11/20/19 11:59 10/24/19 12:17 Aspirin (Ecotrin) 81 mg DAILY ORAL 10/21/19 09:00 11/20/19 08:59 10/24/19 09:23 Atorvastatin Calcium (Lipitor) 20 mg BEDTIME ORAL 10/21/19 21:00 11/20/19 20:59 10/23/19 21:17 Ceftriaxone Sodium 2 gm/ Dextrose 55 ml @ 110 mls/hr Q24H IVPB 10/23/19 17:00 10/30/19 16:59 10/23/19 17:39 Dextrose (Dextrose 50%) 25 ml Q30M PRN IV Hypoglycemia 10/20/19 23:15 11/19/19 23:14 Dextrose (Dextrose 50%) 50 ml Q30M PRN IV Hypoglycemia 10/20/19 23:15 11/19/19 23:14 Diltiazem HCl (Cardizem) 60 mg EVERY 12 HOURS ORAL 10/21/19 09:00 11/20/19 08:59 10/24/19 09:23 Docusate Sodium (Colace) 100 mg TWICE A DAY ORAL 10/21/19 09:00 11/20/19 08:59 10/24/19 09:23 Finasteride (Proscar) 5 mg DAILY ORAL 10/21/19 09:00 11/20/19 08:59 10/24/19 09:23 Heparin Sodium (Porcine) (Heparin 5000 units/ml) 5,000 units EVERY 12 HOURS SUBQ 10/21/19 09:00 11/20/19 08:59 10/24/19 09:24 Insulin Aspart (NovoLOG) BEFORE MEALS AND HS SUBQ 10/21/19 06:30 11/20/19 06:29 10/24/19 12:16 Ondansetron HCl (Zofran) 4 mg Q8HR PRN IVP Nausea & Vomiting 10/21/19 00:00 11/20/19 00:00 10/22/19 23:59 Sertraline HCl (Zoloft) 50 mg DAILY ORAL 10/21/19 09:00 11/20/19 08:59 10/24/19 09:23 Tamsulosin HCl (Flomax) 0.4 mg DAILY ORAL 10/21/19 09:00 11/20/19 08:59 10/24/19 09:22 Hadley Ferreira M.D. Oct 24, 2019 13:34
--- NOTE | 2019-10-24 14:29 | General Progress Note ---
Assessment/Plan Status: stable Assessment/Plan: S: I am feeling better O: denies any pain or sob. PHYSICAL EXAMINATION:HEAD AND NECK: Atraumatic and normocephalic. CHEST: Clear to auscultation.HEART: S1, S2. Regular rate and rhythm. ABDOMEN: Soft. No organomegaly.MUSCULOSKELETAL: No gross lateralized motor deficit. NEUROLOGY: The patient is awake, alert, oriented x3. LABORATORY DATA: Dated 10/23 reviewed ASSESSMENT: 1. Gram Negative Sepsis secondary to UTI. 2. Healthcare-associated UTI. 3. Anemia. 4. Renal failure - age indeterminate. 5. Abnormal LFT. 6. Hypertension. 7. Diabetes type 2. 8. Psychiatric disorder. 9. BPH. 10. GI and DVT prophylaxes. PLAN OF CARE: Plan: Case Discussed with ID reviewed current empirically abx pending negative blood culture Subjective Allergies: Coded Allergies: No Known Allergies (Unverified , 10/20/19) Objective Last 24 Hour Vital Signs Date Time Temp Pulse Resp B/P (MAP) Pulse Ox O2 Delivery O2 Flow Rate FiO2 10/24/19 12:00 98.4 92 20 128/76 (93) 94 10/24/19 09:23 99 133/81 10/24/19 09:00 Room Air 10/24/19 08:00 98.3 99 20 133/81 (98) 93 10/24/19 04:00 98.1 90 18 137/75 (95) 96 10/24/19 00:00 98.1 83 18 129/69 (89) 95 10/23/19 21:17 95 158/76 10/23/19 20:08 Room Air 10/23/19 20:00 99.3 95 18 158/76 (103) 95 10/23/19 16:00 98.4 102 18 131/78 (95) 96 Intake and Output 10/23/19 10/24/19 19:00 07:00 Intake Total 640 ml 480 ml Output Total 1200 ml 1250 ml Balance -560 ml -770 ml Intake Oral 640 ml 480 ml Output Urine Total 1200 ml 1250 ml # Voids 1 Laboratory Tests 10/24/19 04:34: White Blood Count 8.1, Red Blood Count 3.78L, Hemoglobin 11.6L, Hematocrit 33.9L , Mean Corpuscular Volume 90, Mean Corpuscular Hemoglobin 30.7, Mean Corpuscular Hemoglobin Concent 34.3, Red Cell Distribution Width 12.0, Platelet Count 288, Mean Platelet Volume 5.7L, Neutrophils (%) (Auto) 59.1, Lymphocytes ( %) (Auto) 26.8, Monocytes (%) (Auto) 9.7, Eosinophils (%) (Auto) 3.7H, Basophils (%) (Auto) 0.8, Sodium Level 142, Potassium Level 3.9, Chloride Level 105, Carbon Dioxide Level 30, Anion Gap 7, Blood Urea Nitrogen 20H, Creatinine 1.1, Estimat Glomerular Filtration Rate > 60, Glucose Level 122H, Calcium Level 9.2, Total Bilirubin 0.2, Aspartate Amino Transf (AST/SGOT) 34, Alanine Aminotransferase (ALT/SGPT) 56, Alkaline Phosphatase 130H, Total Protein 7.1, Albumin 2.3L, Globulin 4.8, Albumin/Globulin Ratio 0.5L Height (Feet): 5 Height (Inches): 7.00 Weight (Pounds): 189 Momo Hilario MD Oct 24, 2019 14:29
[2019-10-24 16:00] VITALS: BP 139/79
--- NOTE | 2019-10-24 16:58 | Cardiac Electrophysiology PN ---
Assessment/Plan Assessment/Plan 1. Sinus Tachycardia due to sepsis The patient does not have any chest pain, already ruled out for myocardial infarction. Echocardiogram EF 55%.In NSR 2. Fever and sepsis on Abx per ID. 3. Hypertension. Continue Cardizem 60 mg twice daily. 4. Diabetes on insulin. 5. Hyperlipidemia, on Lipitor. CRYSTAL RN Subjective Subjective No CP or SOB. In NAD on NMB Objective Last 24 Hour Vital Signs Date Time Temp Pulse Resp B/P (MAP) Pulse Ox O2 Delivery O2 Flow Rate FiO2 10/24/19 12:00 98.4 92 20 128/76 (93) 94 10/24/19 09:23 99 133/81 10/24/19 09:00 Room Air 10/24/19 08:00 98.3 99 20 133/81 (98) 93 10/24/19 04:00 98.1 90 18 137/75 (95) 96 10/24/19 00:00 98.1 83 18 129/69 (89) 95 10/23/19 21:17 95 158/76 10/23/19 20:08 Room Air 10/23/19 20:00 99.3 95 18 158/76 (103) 95 Intake and Output 10/23/19 10/24/19 19:00 07:00 Intake Total 640 ml 480 ml Output Total 1200 ml 1250 ml Balance -560 ml -770 ml Intake Oral 640 ml 480 ml Output Urine Total 1200 ml 1250 ml # Voids 1 Laboratory Tests Test 10/24/19 04:34 White Blood Count 8.1 K/UL (4.8-10.8) Red Blood Count 3.78 M/UL (4.70-6.10) L Hemoglobin 11.6 G/DL (14.2-18.0) L Hematocrit 33.9 % (42.0-52.0) L Mean Corpuscular Volume 90 FL (80-99) Mean Corpuscular Hemoglobin 30.7 PG (27.0-31.0) Mean Corpuscular Hemoglobin Concent 34.3 G/DL (32.0-36.0) Red Cell Distribution Width 12.0 % (11.6-14.8) Platelet Count 288 K/UL (150-450) Mean Platelet Volume 5.7 FL (6.5-10.1) L Neutrophils (%) (Auto) 59.1 % (45.0-75.0) Lymphocytes (%) (Auto) 26.8 % (20.0-45.0) Monocytes (%) (Auto) 9.7 % (1.0-10.0) Eosinophils (%) (Auto) 3.7 % (0.0-3.0) H Basophils (%) (Auto) 0.8 % (0.0-2.0) Sodium Level 142 MMOL/L (136-145) Potassium Level 3.9 MMOL/L (3.5-5.1) Chloride Level 105 MMOL/L (98-107) Carbon Dioxide Level 30 MMOL/L (21-32) Anion Gap 7 mmol/L (5-15) Blood Urea Nitrogen 20 mg/dL (7-18) H Creatinine 1.1 MG/DL (0.55-1.30) Estimat Glomerular Filtration Rate > 60 mL/min (>60) Glucose Level 122 MG/DL (74-106) H Calcium Level 9.2 MG/DL (8.5-10.1) Total Bilirubin 0.2 MG/DL (0.2-1.0) Aspartate Amino Transf (AST/SGOT) 34 U/L (15-37) Alanine Aminotransferase (ALT/SGPT) 56 U/L (12-78) Alkaline Phosphatase 130 U/L (46-116) H Total Protein 7.1 G/DL (6.4-8.2) Albumin 2.3 G/DL (3.4-5.0) L Globulin 4.8 g/dL Albumin/Globulin Ratio 0.5 (1.0-2.7) L Objective HEAD AND NECK: Shows no JVD. LUNGS: Coarse rhonchi. CARDIOVASCULAR: Regular S1 and S2 with no gallop or murmur. ABDOMEN: Soft. EXTREMITIES: No pitting edema. Rogelio Peña MD Oct 24, 2019 16:58
--- NOTE | 2019-10-24 17:17 | NUR ---
CHARGE NURSE NOTE: Spoke with pt's son he is requesting to send pt back to [facility].
[2019-10-24] MEDS: cefTRIAXone 2 GM in D5W 55 ML IVPB SCH (17:56)
--- NOTE | 2019-10-24 19:41 | NUR ---
NURSE NOTES: Patient in bed, awake and able to make needs known. On room air with no signs of distress or SOB. IV intact and patent. Helms in place and draining well. Commode at bedside. Bed locked and in lowest position. Call light in reach. Will continue to monitor.
--- NOTE | 2019-10-24 19:59 | NUR ---
HAND-OFF: Report given to ITALIA York. Patient sitting up in bed, watching television, bed in lowest position, call light within reach, bedside commode at bedside, no c/p pain, no SOB, in no apparent distress. IV patent in left antecubital 18 gauge, saline locked.
[2019-10-24 20:00] VITALS: BP 149/80
--- NOTE | 2019-10-24 23:20 | NUR ---
NURSE NOTES: Noted very dark brown liquid stool from patient. Patient stated he had 3 previous liquid stools that were black. Informed Dr. Hilario. No new orders. Previously ordered stool culture collected. C diff stool collected per protocol. No C/O abdominal pain. Will continue to monitor.
[2019-10-25] VITALS (7 sets, daily range): BP systolic 132–152; BP diastolic 70–89
--- NOTE | 2019-10-25 03:18 | NUR ---
NURSE NOTES: Received report from Alyssa ECHAVARRIA, patient is asleep at this time, no acute distress noted, will continue to monitor for safety and comfort.
--- NOTE | 2019-10-25 03:29 | NUR ---
HAND-OFF: Report given to ITALIA Baird.
[2019-10-25] MEDS: NovoLOG Insulin Flexpen SUBQ SCH ×4 (06:04→20:55)
[2019-10-25 06:39] LABS: EOSINOPHILS % (AUTO) 4.6 % (0.0-3.0); HEMATOCRIT 36.2 % (42.0-52.0); HEMOGLOBIN 12.4 G/DL (14.2-18.0); LYMPHOCYTES % (AUTO) 26.4 % (20.0-45.0); MEAN CORPUSCULAR VOLUME 89 FL (80-99); MONOCYTES % (AUTO) 10.3 % (1.0-10.0); NEUTROPHILS % (AUTO) 57.7 % (45.0-75.0); PLATELET COUNT 312 K/UL (150-450); RED BLOOD COUNT 4.05 M/UL (4.70-6.10); RED CELL DISTRIBUTION WIDTH 12.3 % (11.6-14.8); WHITE BLOOD COUNT 8.4 K/UL (4.8-10.8)
[2019-10-25 07:13] LABS: ALANINE AMINOTRANSFERASE 73 U/L (12-78); ALBUMIN 2.5 G/DL (3.4-5.0); ALBUMIN/GLOBULIN RATIO 0.5 (1.0-2.7); ALKALINE PHOSPHATASE 138 U/L (46-116); ANION GAP 9 mmol/L (5-15); ASPARTATE AMINO TRANSFERASE 57 U/L (15-37); BILIRUBIN,TOTAL 0.2 MG/DL (0.2-1.0); BLOOD UREA NITROGEN 16 mg/dL (7-18); CALCIUM 9.2 MG/DL (8.5-10.1); CARBON DIOXIDE 27 MMOL/L (21-32); CHLORIDE 106 MMOL/L (98-107); CREATININE 1.1 MG/DL (0.55-1.30); POTASSIUM 4.2 MMOL/L (3.5-5.1); SODIUM 142 MMOL/L (136-145)
[2019-10-25] MEDS: Sertraline 50mg tab ORAL SCH (08:16)
[2019-10-25] MEDS: Aspirin EC 81mg tab ORAL SCH (08:16)
[2019-10-25] MEDS: Docusate 100mg cap ORAL SCH ×2 (08:16→18:17)
[2019-10-25] MEDS: dilTIAZem HCl 60mg tab ORAL SCH ×2 (08:16→20:50)
[2019-10-25] MEDS: Tamsulosin 0.4mg cap ORAL SCH (08:16)
[2019-10-25] MEDS: Heparin 5000 units/ml inj SUBQ SCH ×2 (08:19→20:51)
--- NOTE | 2019-10-25 10:42 | Cardiac Electrophysiology PN ---
Assessment/Plan Assessment/Plan 1. Sinus Tachycardia due to sepsis The patient does not have any chest pain, already ruled out for myocardial infarction. Resolved. Echocardiogram EF 55%. 2. Fever and sepsis on Abx per ID. 3. Hypertension. Continue Cardizem 60 mg twice daily. 4. Diabetes on insulin. 5. Hyperlipidemia, on Lipitor. 6. BPH has Helms catheter DW RN DC to [facility] today pending Subjective Subjective No CP or SOB. In NAD on NMB. Stool sent for OB and culture. C Diff was negative Objective Last 24 Hour Vital Signs Date Time Temp Pulse Resp B/P (MAP) Pulse Ox O2 Delivery O2 Flow Rate FiO2 10/25/19 08:16 107 140/83 10/25/19 08:00 98.0 71 23 140/83 (102) 96 10/25/19 04:26 97.5 80 20 148/76 (100) 98 10/25/19 00:00 97.8 80 20 152/84 (106) 95 10/24/19 20:47 87 149/80 10/24/19 20:01 Room Air 10/24/19 20:00 98.4 87 20 149/80 (103) 96 10/24/19 16:00 98.0 92 20 139/79 (99) 95 10/24/19 12:00 98.4 92 20 128/76 (93) 94 Intake and Output 10/24/19 10/25/19 19:00 07:00 Intake Total 1055 ml Output Total 1100 ml Balance -45 ml Intake Oral 1000 ml IV Total 55 ml Output Urine Total 1100 ml # Bowel Movements 2 Laboratory Tests Test 10/25/19 05:43 White Blood Count 8.4 K/UL (4.8-10.8) Red Blood Count 4.05 M/UL (4.70-6.10) L Hemoglobin 12.4 G/DL (14.2-18.0) L Hematocrit 36.2 % (42.0-52.0) L Mean Corpuscular Volume 89 FL (80-99) Mean Corpuscular Hemoglobin 30.5 PG (27.0-31.0) Mean Corpuscular Hemoglobin Concent 34.1 G/DL (32.0-36.0) Red Cell Distribution Width 12.3 % (11.6-14.8) Platelet Count 312 K/UL (150-450) Mean Platelet Volume 5.8 FL (6.5-10.1) L Neutrophils (%) (Auto) 57.7 % (45.0-75.0) Lymphocytes (%) (Auto) 26.4 % (20.0-45.0) Monocytes (%) (Auto) 10.3 % (1.0-10.0) H Eosinophils (%) (Auto) 4.6 % (0.0-3.0) H Basophils (%) (Auto) 1.0 % (0.0-2.0) Sodium Level 142 MMOL/L (136-145) Potassium Level 4.2 MMOL/L (3.5-5.1) Chloride Level 106 MMOL/L (98-107) Carbon Dioxide Level 27 MMOL/L (21-32) Anion Gap 9 mmol/L (5-15) Blood Urea Nitrogen 16 mg/dL (7-18) Creatinine 1.1 MG/DL (0.55-1.30) Estimat Glomerular Filtration Rate > 60 mL/min (>60) Glucose Level 137 MG/DL (74-106) H Calcium Level 9.2 MG/DL (8.5-10.1) Total Bilirubin 0.2 MG/DL (0.2-1.0) Aspartate Amino Transf (AST/SGOT) 57 U/L (15-37) H Alanine Aminotransferase (ALT/SGPT) 73 U/L (12-78) Alkaline Phosphatase 138 U/L (46-116) H Total Protein 7.1 G/DL (6.4-8.2) Albumin 2.5 G/DL (3.4-5.0) L Globulin 4.6 g/dL Albumin/Globulin Ratio 0.5 (1.0-2.7) L Microbiology Date/Time Source Procedure Growth Status 10/24/19 23:15 Stool Clostridium difficile Toxin Assay - Final Complete Objective HEAD AND NECK: Shows no JVD. LUNGS: Coarse rhonchi. CARDIOVASCULAR: Regular S1 and S2 with no gallop or murmur. ABDOMEN: Soft. EXTREMITIES: No pitting edema. Rogelio Peña MD Oct 25, 2019 10:42
--- NOTE | 2019-10-25 10:51 | Pulmonology Progress Note ---
Assessment/Plan Assessment/Plan Pulmonary Progress Note HPI: Patient is a 74 year old man from [place], has Past Medical History of Hypertension, Hyperlipidemia, Diabetes admitted with Urinary Tract Infection , g/o BPH with FC. Noted to have chills as well as nausea and vomiting. Had one episode of loose stool. Denies dysuria hematuria or back pain. He denies any subjective fevers, sweats. No chest pain, palpitations shortness of breath or cough. UTI growing GNR Urine/blood No new pulmonary complaints PMH: Hypertension, Atrial Fibrillation, Hyperlipidemia, Diabetes, Chronic Kidney Disease, Depression, BPH - requires OP FC, Cholelithiasis, Depression PSH: Back surgery unspecified, Urogenital implant Allergies: No Known Allergies Physical Exam Vital Signs Noted General: Awake and alert, no acute distress HEENT: NC/AT. EOMI. Cardiovascular: RRR. HS1 and HS2 normal. No murmur appreciated Resp: Normal work of breathing. No cough, CTAB Abdomen: Abdomen is soft, nondistended. Nontender Skin: Intact. No abrasions, laceration or rash over the exposed skin MSK: Normal tone and bulk. Moving all extremities. No obvious deformity. Neuro: Awake and alert. Mentating appropriately. Back/Spine: No CVA/flank tenderness Impression: Urinary tract infection Hypertension Atrial Fibrillation previously Hyperlipidemia Diabetes Chronic Kidney Disease Depression BPH with FC Cholelithiasis Depression Plan IV Antibiotics per ID PATIENT OFFICE REP Medications O2 PRN PPX Monitor labs ISS Laboratory Tests Noted EKG: Sinus tachycardia, borderline left axis, no ST segment changes. Chest X-Ray: no consolidation, no effusion, no pneumothorax, other - Hardware in the spine appears intact CULTURE BLOOD Final ALONDRA/AERO GRAM NEG RODS SEEN PREVIOUSLY REPORTED Organism 1 ESCHERICHIA COLI ESC COLI M.I.C. RX --------- --- AMPICILLIN >=32 R CEFAZOLIN <=4 S CEFTRIAXONE <=1 S CIPROFLOXACIN 1 S GENTAMICIN >=16 R LEVOFLOXACIN 1 S IMIPENEM <=0.25 S TRIMETHOPRIM/SULFA >=320 R AMIKACIN <=2 S PIPERACILLIN/TAZOBACTAM <=4 S Subjective ROS Limited/Unobtainable: No Allergies: Coded Allergies: No Known Allergies (Unverified , 10/20/19) Objective Last 24 Hour Vital Signs Date Time Temp Pulse Resp B/P (MAP) Pulse Ox O2 Delivery O2 Flow Rate FiO2 2/14/20 08:16 107 140/83 10/25/19 08:00 98.0 71 23 140/83 (102) 96 10/25/19 04:26 97.5 80 20 148/76 (100) 98 10/25/19 00:00 97.8 80 20 152/84 (106) 95 10/24/19 20:47 87 149/80 10/24/19 20:01 Room Air 10/24/19 20:00 98.4 87 20 149/80 (103) 96 10/24/19 16:00 98.0 92 20 139/79 (99) 95 10/24/19 12:00 98.4 92 20 128/76 (93) 94 Intake and Output 10/24/19 10/25/19 19:00 07:00 Intake Total 1055 ml Output Total 1100 ml Balance -45 ml Intake Oral 1000 ml IV Total 55 ml Output Urine Total 1100 ml # Bowel Movements 2 Microbiology Date/Time Source Procedure Growth Status 10/24/19 23:15 Stool Clostridium difficile Toxin Assay - Final Complete Laboratory Tests 10/25/19 05:43: White Blood Count 8.4, Red Blood Count 4.05L, Hemoglobin 12.4L, Hematocrit 36.2L , Mean Corpuscular Volume 89, Mean Corpuscular Hemoglobin 30.5, Mean Corpuscular Hemoglobin Concent 34.1, Red Cell Distribution Width 12.3, Platelet Count 312, Mean Platelet Volume 5.8L, Neutrophils (%) (Auto) 57.7, Lymphocytes ( %) (Auto) 26.4, Monocytes (%) (Auto) 10.3H, Eosinophils (%) (Auto) 4.6H, Basophils (%) (Auto) 1.0, Sodium Level 142, Potassium Level 4.2, Chloride Level 106, Carbon Dioxide Level 27, Anion Gap 9, Blood Urea Nitrogen 16, Creatinine 1.1, Estimat Glomerular Filtration Rate > 60, Glucose Level 137H, Calcium Level 9.2, Total Bilirubin 0.2, Aspartate Amino Transf (AST/SGOT) 57H, Alanine Aminotransferase (ALT/SGPT) 73, Alkaline Phosphatase 138H, Total Protein 7.1, Albumin 2.5L, Globulin 4.6, Albumin/Globulin Ratio 0.5L Current Medications Medications (Trade) Dose Ordered Sig/Krzysztof Route PRN Reason Start Time Stop Time Status Last Admin Dose Admin Acetaminophen (Tylenol) 650 mg Q6H PRN ORAL Mild Pain/Temp > 100.5 10/20/19 23:45 11/19/19 23:44 10/23/19 21:20 Artificial Tears (Akwa-Tears) 2 drop Q6HR BOTH EYES 10/21/19 12:00 11/20/19 11:59 10/25/19 06:06 Aspirin (Ecotrin) 81 mg DAILY ORAL 10/21/19 09:00 11/20/19 08:59 10/25/19 08:16 Atorvastatin Calcium (Lipitor) 20 mg BEDTIME ORAL 10/21/19 21:00 11/20/19 20:59 10/24/19 20:47 Ceftriaxone Sodium 2 gm/ Dextrose 55 ml @ 110 mls/hr Q24H IVPB 10/23/19 17:00 10/30/19 16:59 10/24/19 17:56 Dextrose (Dextrose 50%) 25 ml Q30M PRN IV Hypoglycemia 10/20/19 23:15 11/19/19 23:14 Dextrose (Dextrose 50%) 50 ml Q30M PRN IV Hypoglycemia 10/20/19 23:15 11/19/19 23:14 Diltiazem HCl (Cardizem) 60 mg EVERY 12 HOURS ORAL 10/21/19 09:00 11/20/19 08:59 10/25/19 08:16 Docusate Sodium (Colace) 100 mg TWICE A DAY ORAL 10/21/19 09:00 11/20/19 08:59 10/25/19 08:16 Finasteride (Proscar) 5 mg DAILY ORAL 10/21/19 09:00 11/20/19 08:59 10/25/19 08:16 Heparin Sodium (Porcine) (Heparin 5000 units/ml) 5,000 units EVERY 12 HOURS SUBQ 10/21/19 09:00 11/20/19 08:59 10/25/19 08:19 Insulin Aspart (NovoLOG) BEFORE MEALS AND HS SUBQ 10/21/19 06:30 11/20/19 06:29 10/24/19 17:58 Ondansetron HCl (Zofran) 4 mg Q8HR PRN IVP Nausea & Vomiting 10/21/19 00:00 11/20/19 00:00 10/22/19 23:59 Sertraline HCl (Zoloft) 50 mg DAILY ORAL 10/21/19 09:00 11/20/19 08:59 10/25/19 08:16 Tamsulosin HCl (Flomax) 0.4 mg DAILY ORAL 10/21/19 09:00 11/20/19 08:59 10/25/19 08:16 Mega Rucker MD Oct 25, 2019 10:51
[2019-10-25] MEDS ORDERED: ROCEPHIN2 GM/50 ML IV (11:46)
--- NOTE | 2019-10-25 11:47 | General Progress Note ---
Assessment/Plan Status: stable Assessment/Plan: S: I am feeling better O: denies any pain or sob. at the bed side PHYSICAL EXAMINATION:HEAD AND NECK: Atraumatic and normocephalic. CHEST: Clear to auscultation.HEART: S1, S2. Regular rate and rhythm. ABDOMEN: Soft. No organomegaly.MUSCULOSKELETAL: No gross lateralized motor deficit. NEUROLOGY: The patient is awake, alert, oriented x3. LABORATORY DATA: Dated 10/25 reviewed ASSESSMENT: 1. Gram Negative Sepsis secondary to UTI. 2. Healthcare-associated UTI. 3. Anemia. 4. Renal failure - age indeterminate. 5. Abnormal LFT. 6. Hypertension. 7. Diabetes type 2. 8. Psychiatric disorder. 9. BPH. 10. GI and DVT prophylaxes. PLAN OF CARE: Plan: Case Discussed with ID reviewed current empirically abx negative blood culture DC the clodu and post void trial. OK to return to [facility] Subjective Allergies: Coded Allergies: No Known Allergies (Unverified , 10/20/19) Objective Last 24 Hour Vital Signs Date Time Temp Pulse Resp B/P (MAP) Pulse Ox O2 Delivery O2 Flow Rate FiO2 10/25/19 09:00 Room Air 10/25/19 08:16 107 140/83 10/25/19 08:00 98.0 71 23 140/83 (102) 96 10/25/19 04:26 97.5 80 20 148/76 (100) 98 10/25/19 00:00 97.8 80 20 152/84 (106) 95 10/24/19 20:47 87 149/80 10/24/19 20:01 Room Air 10/24/19 20:00 98.4 87 20 149/80 (103) 96 10/24/19 16:00 98.0 92 20 139/79 (99) 95 10/24/19 12:00 98.4 92 20 128/76 (93) 94 Intake and Output 10/24/19 10/25/19 19:00 07:00 Intake Total 1055 ml Output Total 1100 ml Balance -45 ml Intake Oral 1000 ml IV Total 55 ml Output Urine Total 1100 ml # Bowel Movements 2 Laboratory Tests 10/25/19 05:43: White Blood Count 8.4, Red Blood Count 4.05L, Hemoglobin 12.4L, Hematocrit 36.2L , Mean Corpuscular Volume 89, Mean Corpuscular Hemoglobin 30.5, Mean Corpuscular Hemoglobin Concent 34.1, Red Cell Distribution Width 12.3, Platelet Count 312, Mean Platelet Volume 5.8L, Neutrophils (%) (Auto) 57.7, Lymphocytes ( %) (Auto) 26.4, Monocytes (%) (Auto) 10.3H, Eosinophils (%) (Auto) 4.6H, Basophils (%) (Auto) 1.0, Sodium Level 142, Potassium Level 4.2, Chloride Level 106, Carbon Dioxide Level 27, Anion Gap 9, Blood Urea Nitrogen 16, Creatinine 1.1, Estimat Glomerular Filtration Rate > 60, Glucose Level 137H, Calcium Level 9.2, Total Bilirubin 0.2, Aspartate Amino Transf (AST/SGOT) 57H, Alanine Aminotransferase (ALT/SGPT) 73, Alkaline Phosphatase 138H, Total Protein 7.1, Albumin 2.5L, Globulin 4.6, Albumin/Globulin Ratio 0.5L Height (Feet): 5 Height (Inches): 7.00 Weight (Pounds): 189 Momo Hilario MD Oct 25, 2019 11:47
--- NOTE | 2019-10-25 13:00 | NUR ---
NURSE NOTES: Helms catheter removed per MD order.
--- NOTE | 2019-10-25 13:44 | NUR ---
CASE MANAGEMENT:REVIEW SI;GRAM NEGATIVE SEPSIS. UTI. 98.0 107 23 152/84 94% ON RA AST 57 IS;ROCEPHIN IV Q24 HRS HEPARIN SUBQ Q12 HRS DILTIAZEM PO Q12 HRS MED SURG STATUS DCP;TO [facility]
--- NOTE | 2019-10-25 14:07 | NUR ---
NURSE NOTES: Received patient on bed, awake. IV site intact and patent. Bed in low and locked position, call light in reach. Patient denies pain and shortness of breath. Helms catheter in 0place and secured and patent and draining. Room board updated, will continue to monitor.
--- NOTE | 2019-10-25 14:37 | NUR ---
*_* DISCHARGE PLANNING*_* PATIENT HAS BEEN REFERRED BACK TO [facility]. ALL CLINICALS FAXED. P: [phone] F: [phone] FOLLOW UP CALL MADE. SPOKE WITH ANDRADE, CONFIRMED PATIENT IS ACCEPTED TO RETURN RM 232-B SKILLED Addendum: 10/25/19 at 1720 by ANMOL DORADO LVN LVN TRANSPORTATION PUT ON WILL CALL FOR TRANSPORTATION FROM [facility] TO [facility] PER [place] [facility] @ EXT [id number] RN TO ACTIVATE WILL CALL UPON PATIENT CLEARED FOR DC TO SNF
[2019-10-25] MEDS: cefTRIAXone 2 GM in D5W 55 ML IVPB SCH (16:54)
--- NOTE | 2019-10-25 17:41 | Infectious Diseases Prog Note ---
Assessment/Plan Problems: (1) Gram negative sepsis Assessment & Plan: with E coli source most likely CAUTI , continue ceftriaxone for two weeks , await repeated blood culture to confirm clearance (2) Catheter-associated urinary tract infection Assessment & Plan: with E coli on meropenem , now on ceftriaxone for two weeks , recommend to change cloud catheter if not done yet in the future (3) Nausea & vomiting Assessment & Plan: due to the above, resolved , continue supportive care (4) Elev transaminase/LDH Assessment & Plan: suspect due to liver shock from sepsis, continue supportive care , trends liver function, screen for hepatitis is negative Subjective Constitutional: Reports: no symptoms HEENT: Reports: no symptoms Respiratory: Reports: no symptoms Breasts: Reports: no symptoms Cardiovascular: Reports: no symptoms Gastrointestinal/Abdominal: Reports: no symptoms Genitourinary: Reports: no symptoms Neurologic: Reports: no symptoms Psychiatric: Reports: no symptoms Skin: Reports: no symptoms Endocrine: Reports: no symptoms Hematologic: Reports: no symptoms Musculoskeletal: Reports: no symptoms Allergies: Coded Allergies: No Known Allergies (Unverified , 10/20/19) Subjective feels overall better with no fever or chills Objective Vital Signs Last 24 Hour Vital Signs Date Time Temp Pulse Resp B/P (MAP) Pulse Ox O2 Delivery O2 Flow Rate FiO2 10/25/19 16:02 98.0 94 20 132/76 (94) 99 10/25/19 12:00 98.0 90 20 135/70 (91) 94 10/25/19 09:00 Room Air 10/25/19 08:16 107 140/83 10/25/19 08:00 98.0 71 23 140/83 (102) 96 10/25/19 04:26 97.5 80 20 148/76 (100) 98 10/25/19 00:00 97.8 80 20 152/84 (106) 95 10/24/19 20:47 87 149/80 10/24/19 20:01 Room Air 10/24/19 20:00 98.4 87 20 149/80 (103) 96 Height (Feet): 5 Height (Inches): 7.00 Weight (Pounds): 189 General Appearance: WD/WN, no acute distress HEENT: normocephalic, atraumatic, anicteric, mucous membranes moist, PERRL Respiratory/Chest: chest wall non-tender, lungs clear, normal breath sounds, no respiratory distress, no accessory muscle use Cardiovascular: normal peripheral pulses, normal rate, regular rhythm, no gallop/murmur, no JVD Abdomen: normal bowel sounds, soft, non tender, no organomegaly, non distended , no mass, no scars Genitourinary: normal external genitalia Extremities: no cyanosis, no clubbing Skin: no rash, no lesions Neurologic/Psychiatric: bearing inspector II-XII grossly normal, alert, oriented x 3, responsive Lymphatic: no neck adenopathy, no groin adenopathy Musculoskeletal: normal muscle bulk, no effusion Microbiology Date/Time Source Procedure Growth Status 10/23/19 16:13 Blood Blood Culture - Preliminary NO GROWTH AFTER 24 HOURS Resulted 10/23/19 16:05 Blood Blood Culture - Preliminary NO GROWTH AFTER 24 HOURS Resulted 10/24/19 23:15 Stool Clostridium difficile Toxin Assay - Final Complete Laboratory Tests Test 10/25/19 05:43 White Blood Count 8.4 K/UL (4.8-10.8) Red Blood Count 4.05 M/UL (4.70-6.10) L Hemoglobin 12.4 G/DL (14.2-18.0) L Hematocrit 36.2 % (42.0-52.0) L Mean Corpuscular Volume 89 FL (80-99) Mean Corpuscular Hemoglobin 30.5 PG (27.0-31.0) Mean Corpuscular Hemoglobin Concent 34.1 G/DL (32.0-36.0) Red Cell Distribution Width 12.3 % (11.6-14.8) Platelet Count 312 K/UL (150-450) Mean Platelet Volume 5.8 FL (6.5-10.1) L Neutrophils (%) (Auto) 57.7 % (45.0-75.0) Lymphocytes (%) (Auto) 26.4 % (20.0-45.0) Monocytes (%) (Auto) 10.3 % (1.0-10.0) H Eosinophils (%) (Auto) 4.6 % (0.0-3.0) H Basophils (%) (Auto) 1.0 % (0.0-2.0) Sodium Level 142 MMOL/L (136-145) Potassium Level 4.2 MMOL/L (3.5-5.1) Chloride Level 106 MMOL/L (98-107) Carbon Dioxide Level 27 MMOL/L (21-32) Anion Gap 9 mmol/L (5-15) Blood Urea Nitrogen 16 mg/dL (7-18) Creatinine 1.1 MG/DL (0.55-1.30) Estimat Glomerular Filtration Rate > 60 mL/min (>60) Glucose Level 137 MG/DL (74-106) H Calcium Level 9.2 MG/DL (8.5-10.1) Total Bilirubin 0.2 MG/DL (0.2-1.0) Aspartate Amino Transf (AST/SGOT) 57 U/L (15-37) H Alanine Aminotransferase (ALT/SGPT) 73 U/L (12-78) Alkaline Phosphatase 138 U/L (46-116) H Total Protein 7.1 G/DL (6.4-8.2) Albumin 2.5 G/DL (3.4-5.0) L Globulin 4.6 g/dL Albumin/Globulin Ratio 0.5 (1.0-2.7) L Current Medications Medications (Trade) Dose Ordered Sig/Krzysztof Route PRN Reason Start Time Stop Time Status Last Admin Dose Admin Acetaminophen (Tylenol) 650 mg Q6H PRN ORAL Mild Pain/Temp > 100.5 10/20/19 23:45 11/19/19 23:44 10/23/19 21:20 Artificial Tears (Akwa-Tears) 2 drop Q6HR BOTH EYES 10/21/19 12:00 11/20/19 11:59 10/25/19 12:53 Aspirin (Ecotrin) 81 mg DAILY ORAL 10/21/19 09:00 11/20/19 08:59 10/25/19 08:16 Atorvastatin Calcium (Lipitor) 20 mg BEDTIME ORAL 10/25/19 21:00 11/20/19 20:59 Ceftriaxone Sodium 2 gm/ Dextrose 55 ml @ 110 mls/hr Q24H IVPB 10/23/19 17:00 10/30/19 16:59 10/25/19 16:54 Dextrose (Dextrose 50%) 25 ml Q30M PRN IV Hypoglycemia 10/20/19 23:15 11/19/19 23:14 Dextrose (Dextrose 50%) 50 ml Q30M PRN IV Hypoglycemia 10/20/19 23:15 11/19/19 23:14 Diltiazem HCl (Cardizem) 60 mg EVERY 12 HOURS ORAL 10/21/19 09:00 11/20/19 08:59 10/25/19 08:16 Docusate Sodium (Colace) 100 mg TWICE A DAY ORAL 10/21/19 09:00 11/20/19 08:59 10/25/19 08:16 Finasteride (Proscar) 5 mg DAILY ORAL 10/21/19 09:00 11/20/19 08:59 10/25/19 08:16 Heparin Sodium (Porcine) (Heparin 5000 units/ml) 5,000 units EVERY 12 HOURS SUBQ 10/21/19 09:00 11/20/19 08:59 10/25/19 08:19 Insulin Aspart (NovoLOG) BEFORE MEALS AND HS SUBQ 10/21/19 06:30 11/20/19 06:29 10/24/19 17:58 Ondansetron HCl (Zofran) 4 mg Q8HR PRN IVP Nausea & Vomiting 10/21/19 00:00 11/20/19 00:00 10/22/19 23:59 Sertraline HCl (Zoloft) 50 mg DAILY ORAL 10/21/19 09:00 11/20/19 08:59 10/25/19 08:16 Tamsulosin HCl (Flomax) 0.4 mg DAILY ORAL 10/21/19 09:00 11/20/19 08:59 10/25/19 08:16 Hadley Ferreira M.D. Oct 25, 2019 17:41
--- NOTE | 2019-10-25 18:28 | NUR ---
NURSE NOTES: Patient was bladder scanned and showed 593mL. Message was left with MD Hilario and awaiting any orders.
--- NOTE | 2019-10-25 18:53 | NUR ---
NURSE NOTES: Helms Icelandic 16 inserted. Helms anchored to right leg. Helms intact, patent and draining.
--- NOTE | 2019-10-25 19:25 | NUR ---
NURSE NOTES: Received patient in bed, awake, alert, oriented 3/4, Maori speaking, IV site is clean dry and intact, no acute distress noted, patient has Helms catheter 16 FR draining well, per MD patient will be discharged back to [facility]. RN confirmed that facility is able to accept the patient. Call light is within reach, bed is lowered, locked, alarm is on. Will continue to monitor for comfort and safety.
--- NOTE | 2019-10-25 19:28 | NUR ---
HAND-OFF: Report given to Peter. Endorsed discharge from MD Hilario. Placement information on discharge planning notes.
[2019-10-25] MEDS ORDERED: Atorvastatin 20mg tab ORAL SCH (21:00)
--- NOTE | 2019-10-25 21:25 | NUR ---
NURSE NOTES: Patient is discharged to [facility], report is given to Marivel at the facility and ambulance staff. Belongings list verified, patient is stable at time of discharge.
--- NOTE | 2019-10-27 14:54 | Discharge Summary ---
Discharge Summary Discharge Summary _ DATE OF ADMISSION: 10/20/2019 DATE OF DISCHARGE: 10/25/2019 DISCHARGED BY: Dr. Momo Hilario CONSULTANTS: Dr. Hadley Peña BRIEF HOSPITAL COURSE: Patient is a 74-year-old male with history of hypertension, hyperlipidemia, diabetes, anxiety disorder and atrial fibrillation. The patient complained of diffuse shaking and not feeling well for the past couple of days. Patient was residing in a retirement facility. He denied any shortness of breath. No fever. No chills. No abnormal bleeding. He had an episode of emesis, loose stools and shaking. Upon evaluation at ED, blood work showed elevated WBC to 13.5. Hemoglobin 12, hematocrit 37. Electrolytes were normal. Lactic acid was elevated to 2.5. Creatinine elevated to 1.4. Troponin was negative. Urinalysis showed 3+ leukocyte esterase, 20-30 urine WBC, 2-4 urine RBC and moderate bacteria. EKG showed sinus tachycardia with no ST segment changes. Chest x-ray showed the hardware in the spine. Heart rate improved post IV administration. He had elevation in white count and neutrophil predominance. He was given ceftriaxone. He was admitted for evaluation of sepsis. He was continued on IV fluids. Continued on IV antibiotics. He was resumed on prior medications. Metformin discontinued. Admissions Recruiter consulted. Patient had an episode of tachycardia. He denied any chest pain. Tachycardia could be secondary to sepsis. He was continued on Cardizem 60 mg twice daily. He was given Lipitor for hyperlipidemia. Troponin was negative x2. Echocardiogram showed EF 55%. LFTs were elevated. Hepatitis screen was negative. Elevated function tests possibly due to shock liver from sepsis. Blood culture was growing gram-negative rods. He was given meropenem. Blood and urine culture showed growth of E. coli. Antibiotic was switched to ceftriaxone. Repeat blood culture did not show any growth. C. difficile was negative. Patient was cleared for discharge back [facility] to continue IV antibiotic. Helms catheter was replaced. FINAL DIAGNOSES: Gram-negative sepsis due to E. coli UTI Catheter associated urinary tract infection with E. coli Elevated LFTs suspect due to liver shock from sepsis Anemia Renal failure age indeterminate Hypertension Diabetes type 2 Psychiatric disorder BPH Depression Hyperlipidemia Atrial fibrillation Cholelithiasis DISPOSITION: DC to SNF DISCHARGE MEDICATIONS: Refer to Discharge Medication List. DISCHARGE INSTRUCTIONS: Follow-up in a week. I have been assigned to complete a discharge summary on this account, I was not involved with the patient's management.--RUSLAN Castorena Jacqueline Robles NP Oct 27, 2019 14:54
== END 2019-10-25 21:25 | DRG 698 ==
LOC: EDBD 19:20 → EMR 20:13 → 4E 21:48 → EDBEDREQ 21:59
DX: T83.511A Infection and inflammatory reaction due to indwelling urethral catheter, initial encounter (principal); A41.50 Gram-negative sepsis, unspecified; K72.00 Acute and subacute hepatic failure without coma; R65.20 Severe sepsis without septic shock; N39.0 Urinary tract infection, site not specified; I12.9 Hypertensive chronic kidney disease with stage 1 through stage 4 chronic kidney disease, or unspecified chronic kidney disease; N18.9 Chronic kidney disease, unspecified; E78.5 Hyperlipidemia, unspecified; Y84.6 Urinary catheterization as the cause of abnormal reaction of the patient, or of later complication, without mention of misadventure at the time of the procedure; B96.20 Unspecified Escherichia coli [E. coli] as the cause of diseases classified elsewhere; D64.9 Anemia, unspecified; E11.22 Type 2 diabetes mellitus with diabetic chronic kidney disease; F99 Mental disorder, not otherwise specified; F32.9 Major depressive disorder, single episode, unspecified; I48.91 Unspecified atrial fibrillation; K80.20 Calculus of gallbladder without cholecystitis without obstruction; Z79.4 Long term (current) use of insulin
CPT/HCPCS: 36415; 71045; 76700; 76770; 80048; 80053; 81003; 82550; 82553; 82962; 83605; 83880; 84439; 84443; 84484; 85025; 86705; 86709; 86803; 87040; 87045; 87081; 87086; 87181; 87324; 87340; 93005; 93306; 96365; 99285; J1815; J2405; J7030